=== PATIENT | male | born 1950 | race Caucasian/White ===

== ENCOUNTER → 2019-08-29 | Outpatient (CLI) | payer MEDICARE, BC | LOC: LB.CLINIC 09:36 | PROVIDERS: ATTEND Nurse Practitioner Family | DX: I27.20 Pulmonary hypertension, unspecified (principal) | CPT/HCPCS: 36415; 80048 ==

== ENCOUNTER 2019-10-04 02:20 | Emergency (ER) | payer MEDICARE, BC ==
[2019-10-04] MEDS ORDERED: Sodium Chloride 0.9% 1,000 ML IV SCH (03:00)
--- NOTE | 2019-10-04 05:29 | ER ---
HISTORY OF PRESENT ILLNESS: A 69-year-old male who comes in by private car with complaints of extreme weakness. He has had rectal bleeding he tells me violently at times for about a week. The patient tells me that he is achy all over and it is even hard to get a good breath. The patient states he does have some chest pain on the lower left side that has been on and off for weeks. He tells me that he did not take his Coumadin level yesterday, but was supposed to start taking it again today. PAST MEDICAL HISTORY: Includes PE, severe obesity, coronary artery disease, hypotension. OBJECTIVE: GENERAL APPEARANCE: The patient is awake, he is pale, he is tired. VITAL SIGNS: Initially revealed a blood pressure of 69/49, pulse 136, he is afebrile, O2 sats were 85%, but they did respond well to 3 L of O2, bringing up his saturation level to 100%. We then turned it down to 2 L. HEENT: Oral mucous membranes are slightly dry. Tonsils are not enlarged or injected. Pharynx not inflamed. NECK: Supple. LUNGS: Clear with reduced air exchange throughout the lung zaragoza. CARDIAC: Heart sounds distinct without murmurs. ABDOMEN: Soft, protuberant, mild vague tenderness diffusely with palpation. Bowel sounds are present. SKIN: Warm and dry. LABORATORY DATA: CBC shows a white count of 11.8, hemoglobin 5.1, hematocrit 18.8. INR is 3.8. Electrolyte panel is normal. Kidney function is normal with creatinine 1.26. Blood sugar is 235. Lactic acid 8.36. DIAGNOSES: 1. Severe anemia due to gastrointestinal bleed. 2. Lactic acidosis. 3. Hypotension. INITIAL TREATMENT PLAN: A L of normal saline was bolused in. This did bring his blood pressure up, the most recent reading was 103/36. I did consult with [facility] in [place], talking to Dr. Abraham, who accepted the patient. Arrangements are being made for the patient to be transferred to [place] as soon as possible, and we will start a blood transfusion here as well. CRS/MODL /[id number]
--- NOTE | 2019-10-04 06:44 | ER ---
ADDENDUM: The patient is being currently transferred to [facility] in [place] by ground ambulance, ACLS. He is leaving our facility now at 6:30 a.m. The patient's blood pressure has remained low. He was a very difficult IV start. We finally managed to get a second IV line in, so IV fluids can be given as well as the blood transfusion. The patient is in no significant respiratory distress, just mild shortness of breath, and I feel this is due to the severe anemia. CRS/MODL /[id number]
--- NOTE | 2019-10-05 11:33 | CR ---
Date of Service: 10/04/19 Clinical Data: rectal bleeding UNENHANCED ABDOMEN AND PELVIC CT: Multislice acquisition through the abdomen and pelvis without IV or oral contrast was performed. No priors. There are mild atelectatic changes in both lung bases. The lung bases otherwise clear. There is a 3.0 cm densely calcified lesion in the right paraspinal region. This is probably a prominent disk margin spur. It could represent a calcified lymph node from prior granulomatous disease. it appears to be benign. There is diffuse fatty infiltration of the liver. No focal hepatic lesions. The gallbladder is contacted. No calcified gallstones. There are multiple calcifications within the spleen consistent with prior granulomatous disease. The spleen otherwise appears normal. The pancreas appears normal. The right and left adrenals appear normal. There is mild atrophy of both kidneys. No nephrocalcinosis or nephrolithiasis. No hydronephrosis or hydroureter. There is a small amount of fluid within the bladder. It appears grossly normal. No evidence of appendicitis. There is mild diverticulosis of the descending and sigmoid colon. No evidence of diverticulitis. No free air. No free fluid. No dilated loops of bowel. No adenopathy. No aortic aneurysm. There is a periumbilical ventral hernia containing a loop of small bowel. No evidence of obstruction associated with it. There is degenerative disk disease throughout the lower thoracic and lumbar spine. IMPRESSION: No acute abnormalities. Other findings as discussed above. [id number] [facility]
== END 2019-10-04 06:55 ==
LOC: LB.ED 02:20
DX: K92.1 Melena (principal); D50.0 Iron deficiency anemia secondary to blood loss (chronic); E87.2 Acidosis; I95.9 Hypotension, unspecified; Z86.711 Personal history of pulmonary embolism; E66.9 Obesity, unspecified; I25.10 Atherosclerotic heart disease of native coronary artery without angina pectoris
CPT/HCPCS: 36415; 36430; 74176; 80053; 82962; 83605; 84484; 85025; 85610; 86850; 86900; 86901; 86920; 86922; 93005; 99285; J3430; J7030; P9016

== ENCOUNTER 2020-02-06 15:20 | Emergency (ER) | payer MEDICARE, BC ==
[2020-02-06] MEDS: Nystatin Topical Powder 15 GM Bottle ONE (15:45)
[2020-02-06] MEDS: Menthol/Zinc Oxide Ointment 113 GM Tube TOP PRN (16:00)
--- NOTE | 2020-02-06 16:03 | EDM.PDOC ---
ED HPI GENERAL MEDICAL PROBLEM - General Stated Complaint: BLEEDING IN INNER THIGH AREA Time Seen by Provider: 02/06/20 15:20 - History of Present Illness INITIAL COMMENTS - FREE TEXT/NARRATIVE: Jeremy presents to the emergency room for evaluation of scrotal issues. He notes that a couple weeks ago, he noticed a slight area of irritation on the anterior aspect of his scrotum near the midline. He believes that it was pinched somehow. Since then, the irritation has become a little more sensitive and itchy. He did notice a slight amount of blood coming from one edge. He is here primarily to get some salve to put on it to allow it to heal up. He really has no other issues for today. - Related Data Allergies Allergy/AdvReac Type Severity Reaction Status Date / Time No Known Allergies Allergy Verified 10/04/19 03:25 Home Meds: Home Meds Furosemide 1 tab PO BID 10/04/19 [History] Metoprolol Succinate [Toprol XL] 25 mg PO DAILY 10/04/19 [History] Multivits w-Min/Ferrous Gluc [Cerovite Liquid] 9 mg PO DAILY 10/04/19 [History] Warfarin Sodium [Jantoven] 1 tab PO DAILY 10/04/19 [History] lisinopriL [Lisinopril] 1 tab PO DAILY 10/04/19 [History] Past Medical History HEENT History: Reports: Impaired Vision Cardiovascular History: Reports: Hypertension, Pulmonary Hypertension Respiratory History: Reports: SOB Other Respiratory History: Pt has continuous oxygen at 2L/min. Endocrine/Metabolic History: Reports: Obesity/BMI 30+ Social & Family History - Caffeine Use Caffeine Use: Reports: Coffee ED ROS GENERAL - Review of Systems Review Of Systems: Comprehensive ROS is negative, except as noted in HPI. ED EXAM, GENERAL - Physical Exam Exam: See Below Exam Limited By: No Limitations General Appearance: Alert, WD/WN, No Apparent Distress Ears: Normal External Exam Throat/Mouth: Normal Lips, Normal Voice, No Airway Compromise Head: Atraumatic, Normocephalic Neck: Normal Inspection, Supple, Full Range of Motion Respiratory/Chest: No Respiratory Distress GI/Abdominal: Soft, Non-Tender (Male) Exam: Rash (He does have a slight rash that looks like may be related to some slight pressure and some irritation and induration along an abrasion without any active bleeding or underlying tenderness and no real sign of cellulitis and certainly no pointing abscess) Neurological: Alert, Oriented Psychiatric: Normal Affect, Normal Mood Course - Orders/Labs/Meds Orders: Active Orders 24 hr Category Date Time Status Menthol/Zinc Oxide [Calmoseptine] Med 02/06/20 20:00 Ordered 113 gm TOP BID Nystatin [Nystop] Med 02/06/20 20:00 Active 1 gm TOP BID Medication Orders Nystatin (Nystop) 1 gm TOP BID PEPITO Meds: Medications Generic Name Dose Route Start Last Admin Trade Name Freq PRN Reason Stop Dose Admin Nystatin 1 gm 02/06/20 20:00 Nystop TOP BID PEPITO Discontinued Medications Generic Name Dose Route Start Last Admin Trade Name Freq PRN Reason Stop Dose Admin Nystatin Confirm 02/06/20 15:48 Nystop Administered 02/06/20 15:49 Dose 15 gm .ROUTE .STK-MED ONE Departure - Departure Time of Disposition: 13:00 Disposition: Home, Self-Care 01 Clinical Impression: Scrotal rash - Discharge Information Instructions: Rash, Adult Referrals: PCP,None [Primary Care Provider] - Additional Instructions: Thanks for your time. Please follow the rash through to resolution. Please have your doctor check it out at your next visit. Take care, Dillon Arias MD - My Orders Last 24 Hours: My Active Orders 02/06/20 20:00 Menthol/Zinc Oxide [Calmoseptine] 113 gm TOP BID Nystatin [Nystop] 1 gm TOP BID - Assessment/Plan Last 24 Hours: My Active Orders 02/06/20 20:00 Menthol/Zinc Oxide [Calmoseptine] 113 gm TOP BID Nystatin [Nystop] 1 gm TOP BID
[2020-02-06] MEDS ORDERED: Nystatin Topical Powder 15 GM Bottle TOP SCH (20:00)
[2020-02-06] MEDS ORDERED: Menthol/Zinc Oxide Ointment 113 GM Tube TOP SCH (20:00)
== END 2020-02-06 16:05 | disposition home or self-care (01) ==
LOC: LB.ED 15:20
DX: R21 Rash and other nonspecific skin eruption (principal); I27.20 Pulmonary hypertension, unspecified; E66.9 Obesity, unspecified; Z68.1 Body mass index [BMI] 19.9 or less, adult; Z79.899 Other long term (current) drug therapy; Z79.01 Long term (current) use of anticoagulants
CPT/HCPCS: 99282; 99283; A9270-GY

== ENCOUNTER 2020-05-08 14:55 | Observation (INO) | payer MEDICARE, BC ==
[2020-05-08] MEDS ORDERED: Sodium Chloride 0.9% 1,000 ML IV ONE (16:05)
[2020-05-08] MEDS ORDERED: Albuterol/Ipratropium 3.0-0.5 MG/3 ML Neb Soln NEB PRN (17:12)
[2020-05-08] MEDS ORDERED: WARFARIN SODIUM PO SCH ×2 (17:15→18:00)
[2020-05-08] MEDS ORDERED: methylPREDNISolone Sodium Succinate 40 MG/1 ML SDV ONE (18:19)
--- NOTE | 2020-05-08 18:19 | ADMIT ---
This 70-year-old male who is being admitted for observation regarding respiratory acidosis which is causing weakness and some confusion. The patient was admitted through the emergency room where his state of confusion definitely improved while being on oxygen 5 L per nasal cannula. The patient was initially unable to really move or even answer questions effectively. Within about 45 minutes on oxygen, his symptoms definitely improved. Lab results revealed CBC is unremarkable. ABG showed a pH of 7.22, pCO2 of 99.9, HCO3 of 40.5, O2 sats at that time 86% on 5 L confirming his diagnosis of respiratory acidosis. The e- hospitalist service will be involved with handling this patient's care. We started him on normal saline at 200 mL an hour. The patient will be given a DuoNeb treatment as soon as he settles into his hospital room and we will resume his other current medications. PHYSICAL EXAMINATION: VITAL SIGNS: The patient's vital signs otherwise were okay. Blood pressure 115/72, pulse 96, temp 96, respirations 20. GENERAL: The patient is more awake and alert and is able to answer questions appropriately while he was being transferred over from the emergency room to the hospital. CRS/MODL /[id number]
[2020-05-08] MEDS ORDERED: methylPREDNISolone Sodium Succinate 40 MG/1 ML SDV IVPUSH ONE (18:25)
[2020-05-08] MEDS ORDERED: methylPREDNISolone Sodium Succinate 40 MG/1 ML SDV IV SCH (19:00)
[2020-05-08] MEDS ORDERED: Albuterol/Ipratropium 3.0-0.5 MG/3 ML Neb Soln NEB SCH (19:00)
[2020-05-08] MEDS ORDERED: Furosemide 40 MG/4 ML VIAL IVPUSH ONE (19:52)
--- NOTE | 2020-05-08 19:59 | PCM.PN ---
- General Info Date of Service: 05/08/20 - Patient Data Vitals - Most Recent: Last Vital Signs Temp 97.3 F 05/08/20 17:10 Pulse 82 05/08/20 17:35 Resp 28 H 05/08/20 17:10 BP 141/84 H 05/08/20 17:10 Pulse Ox 90 L 05/08/20 17:35 Weight - Most Recent: 415 lb I&O - Last 24 Hours: Intake & Output 05/08/20 05/08/20 05/08/20 06:59 14:59 22:59 Intake Total 880 Balance 880 Lab Results Last 24 Hours: Laboratory Results - last 24 hr 05/08/20 05/08/20 05/08/20 Range/Units 15:00 15:06 15:07 WBC (4.0-11.0) K/uL RBC (4.50-6.50) M/uL Hgb (13.0-18.0) g/dL Hct (40.0-54.0) % MCV (76-96) fL MCH (27.0-32.0) pg MCHC (31.0-35.0) g/dL RDW (11.0-16.0) % Plt Count (150-400) K/uL MPV (6.0-10.0) fL Neut % (Auto) (45.0-70.0) % Lymph % (Auto) (20.0-40.0) % [place] % (Auto) (3.0-10.0) % Eos % (Auto) (1.0-5.0) % Baso % (Auto) (0.0-0.5) % Neut # (Auto) (2.00-7.50) K/uL Lymph # (Auto) (1.50-4.00) K/uL [place] # (Auto) (0.20-0.80) K/uL Eos # (Auto) (0.04-0.40) K/uL Baso # (Auto) (0.02-0.10) K/uL PT (9.0-11.5) sec INR (1.0-3.5) ABG pH (7.35-7.45) ABG pCO2 (35-45) mmHg ABG pO2 (80-105) mmHg ABG HCO3 (22-26) mmol/L ABG O2 Saturation (95-98) % ABG Base Excess (-2-2) O2 Delivery Device POC Sodium (136-145) mmol/L Sodium Cancelled POC Potassium (3.5-5.1) mmol/L Potassium Cancelled POC Chloride (98-109) mmol/L Chloride Cancelled Carbon Dioxide Cancelled Anion Gap Cancelled POC BUN (8-26) mg/dL BUN Cancelled Creatinine Cancelled Est Cr Clr Drug Dosing Cancelled Estimated GFR (MDRD) Cancelled BUN/Creatinine Ratio Cancelled Glucose Cancelled POC Glucose (74-100) mg/dL Lactic Acid (0.4-2.0) mmol/L Calcium Cancelled Total Bilirubin Cancelled AST Cancelled ALT Cancelled Alkaline Phosphatase Cancelled Troponin I 0.020 (0.000-0.060) ng/mL B-Natriuretic Peptide 3187 H D (0-125) pg/mL Total Protein Cancelled Albumin Cancelled Globulin Cancelled Albumin/Globulin Ratio Cancelled COVID-19 (DAI) Negative 05/08/20 05/08/20 05/08/20 Range/Units 15:07 15:10 15:40 WBC 8.6 D (4.0-11.0) K/uL RBC 5.73 (4.50-6.50) M/uL Hgb 15.2 D (13.0-18.0) g/dL Hct 50.8 D (40.0-54.0) % MCV 89 (76-96) fL MCH 26.5 L (27.0-32.0) pg MCHC 29.9 L (31.0-35.0) g/dL RDW 17.5 H (11.0-16.0) % Plt Count 242 D (150-400) K/uL MPV 10.3 H (6.0-10.0) fL Neut % (Auto) 77.4 H (45.0-70.0) % Lymph % (Auto) 10.5 L (20.0-40.0) % [place] % (Auto) 9.8 (3.0-10.0) % Eos % (Auto) 2.1 (1.0-5.0) % Baso % (Auto) 0.2 (0.0-0.5) % Neut # (Auto) 6.66 (2.00-7.50) K/uL Lymph # (Auto) 0.90 L (1.50-4.00) K/uL [place] # (Auto) 0.84 H (0.20-0.80) K/uL Eos # (Auto) 0.18 (0.04-0.40) K/uL Baso # (Auto) 0.02 (0.02-0.10) K/uL PT 15.7 H D (9.0-11.5) sec INR 1.5 D (1.0-3.5) ABG pH (7.35-7.45) ABG pCO2 (35-45) mmHg ABG pO2 (80-105) mmHg ABG HCO3 (22-26) mmol/L ABG O2 Saturation (95-98) % ABG Base Excess (-2-2) O2 Delivery Device POC Sodium (136-145) mmol/L Sodium POC Potassium (3.5-5.1) mmol/L Potassium POC Chloride (98-109) mmol/L Chloride Carbon Dioxide Anion Gap POC BUN (8-26) mg/dL BUN Creatinine Est Cr Clr Drug Dosing Estimated GFR (MDRD) BUN/Creatinine Ratio Glucose POC Glucose (74-100) mg/dL Lactic Acid 0.6 (0.4-2.0) mmol/L Calcium Total Bilirubin AST ALT Alkaline Phosphatase Troponin I (0.000-0.060) ng/mL B-Natriuretic Peptide (0-125) pg/mL Total Protein Albumin Globulin Albumin/Globulin Ratio COVID-19 (DAI) 05/08/20 05/08/20 Range/Units 15:51 16:21 WBC (4.0-11.0) K/uL RBC (4.50-6.50) M/uL Hgb (13.0-18.0) g/dL Hct (40.0-54.0) % MCV (76-96) fL MCH (27.0-32.0) pg MCHC (31.0-35.0) g/dL RDW (11.0-16.0) % Plt Count (150-400) K/uL MPV (6.0-10.0) fL Neut % (Auto) (45.0-70.0) % Lymph % (Auto) (20.0-40.0) % [place] % (Auto) (3.0-10.0) % Eos % (Auto) (1.0-5.0) % Baso % (Auto) (0.0-0.5) % Neut # (Auto) (2.00-7.50) K/uL Lymph # (Auto) (1.50-4.00) K/uL [place] # (Auto) (0.20-0.80) K/uL Eos # (Auto) (0.04-0.40) K/uL Baso # (Auto) (0.02-0.10) K/uL PT (9.0-11.5) sec INR (1.0-3.5) ABG pH 7.22 L (7.35-7.45) ABG pCO2 99.9 H* (35-45) mmHg ABG pO2 67 L (80-105) mmHg ABG HCO3 40.5 H (22-26) mmol/L ABG O2 Saturation 86 L (95-98) % ABG Base Excess 13 H (-2-2) O2 Delivery Device Hi flow nasal cannu POC Sodium 141 (136-145) mmol/L Sodium POC Potassium 4.3 (3.5-5.1) mmol/L Potassium POC Chloride 95 L (98-109) mmol/L Chloride Carbon Dioxide Anion Gap POC BUN 37 H (8-26) mg/dL BUN Creatinine Est Cr Clr Drug Dosing Estimated GFR (MDRD) BUN/Creatinine Ratio Glucose POC Glucose 122 H (74-100) mg/dL Lactic Acid (0.4-2.0) mmol/L Calcium Total Bilirubin AST ALT Alkaline Phosphatase Troponin I (0.000-0.060) ng/mL B-Natriuretic Peptide (0-125) pg/mL Total Protein Albumin Globulin Albumin/Globulin Ratio COVID-19 (DAI) Med Orders - Current: Current Medications Acetaminophen/Codeine Phosphate (Tylenol With Codeine No.3 300mg/30mg) 1 tab PO BID PEPITO Albuterol/Ipratropium (Duoneb 3.0-0.5 Mg/3 Ml) 3 ml NEB Q4H PEPITO Cholecalciferol (Vitamin D3) 100 mcg PO DAILY PEPITO Furosemide (Lasix) 40 mg PO BID@0800,1400 PEPITO Lisinopril (Prinivil) 5 mg PO DAILY PEPITO Methylprednisolone Sodium Succinate (Solu-Medrol) 60 mg IV DAILY PEPITO Last Admin: 05/08/20 18:25 Dose: 60 mg Documented by: Metoprolol Succinate (Toprol Xl) 25 mg PO DAILY [facility] Non-Formulary Medication (Multivits W-Min/Ferrous Gluc [Cerovite Liquid]) 9 mg PO DAILY PEPITO Non-Formulary Medication (Warfarin Sodium [Jantoven]) 1 tab PO ASDIRECTED PEPITO Non-Formulary Medication (Warfarin Sodium [Jantoven]) 1 tab PO DAILY PEPITO Tamsulosin HCl (Flomax) 0.4 mg PO DAILY [facility] Discontinued Medications Albuterol/Ipratropium (Duoneb 3.0-0.5 Mg/3 Ml) 3 ml NEB Q6H PRN PRN Reason: Shortness of Breath Last Admin: 05/08/20 18:11 Dose: 3 ml Documented by: Furosemide (Lasix) 40 mg PO BID [facility] Sodium Chloride (Normal Saline) 1,000 mls @ 200 mls/hr IV .BOLUS ONE Stop: 05/08/20 21:04 Last Admin: 05/08/20 16:30 Dose: 200 mls/hr Documented by: Methylprednisolone Sodium Succinate (Solu-Medrol) Confirm Administered Dose 80 mg .ROUTE .STK-MED ONE Stop: 05/08/20 18:20 Last Admin: 05/08/20 18:53 Dose: Not Given Documented by: Methylprednisolone Sodium Succinate (Solu-Medrol) 60 mg IVPUSH ONETIME ONE Stop: 05/08/20 18:26 Non-Formulary Medication (Warfarin Sodium [Jantoven]) 1 tab PO ASDIRECTED PEPITO Non-Formulary Medication (Warfarin Sodium [Jantoven]) 1 tab PO DAILY [facility] Sepsis Event Note - Evaluation Sepsis Screening Result: No Definite Risk - Focused Exam Vital Signs: Vital Signs Temp Pulse Pulse Resp BP BP Pulse Ox 05/08/20 17:35 82 90 L 05/08/20 17:10 97.3 F 86 28 H 141/84 H 88 L 05/08/20 14:55 96 F L 96 20 115/72 90 L Date Exam was Performed: 05/08/20 Time Exam was Performed: 20:00 - Problem List Review Problem List Initiated/Reviewed/Updated: No - My Orders Last 24 Hours: My Active Orders 05/08/20 19:00 Albuterol/Ipratropium [DuoNeb 3.0-0.5 MG/3 ML] 3 ml NEB Q4H 05/08/20 19:52 Furosemide [Lasix] 40 mg IVPUSH NOW ONE - Plan Plan:: [facility] Hospitalist CONSULTATION NOTE: eHospitalist was contacted by Rashawn MARIEE with request of consultation for hypercapnic respiratory failure: HPI: 70 yo M with COPD, chronic resp failure on O2. He was brought to ER today by EMS after being summoned by his home health hearing aid assistant who found him altered. EMS obtained O2 sats of 69% and suspected oxygen was not working. On initial arrival to ER O2 sats had improved to 90% on 5L by [place]. He was initally ence phalopathic however improved to the point of answering questions and being able to use the restroom with minimal assistance. He was not found to be wheezy but had decreased air movement throughout. Blood cell count was normal 8.6, hemoglobin 15.2, INR 1.5, ABG most notable for a respiratory acidosis with pH of 7.22, PCO2 of 99.9, PO2 of 67, bicarb 40.5. Other chemistries notable for a sodium 141 potassium 4.3 BUN 37 glucose 122. A BNP was 3187. COVID testing was negative. INR of 1.5 On camera he admits to progressive dyspnea over the past 2-3 days with increase cough, no sputum production. No pleuritic pain or chest pain. Unsure if any increase in chronic LE swelling. No other bleeding bruising or rash however does have some areas of erythema in skin folds. Pertinent Medical History: COPD Chronic resp failure morbid obesity h/o PE CAD h/o severe anemia sep 2019 Pertinent Social History: lives at home independently, does have a home hearing aid assistant Exam: well developed male, wearing bipap VS: BP 120/72, P 85, RR 22, O2 96% on bipap Lungs: decreased throughout, bibasilar crackles present. Tidal volume of 500 cc on bipap CV: RRR without MRG Ext: pitting edema of the feet, chronic venous stasis changes Skin: erythema with satellite lesion under breast folds Assessment and Plan: Patient is a male with reported history of COPD. History of PE. Presented with hypoxia and confusion found to have hypercapnic respiratory failure with a pH of 7.2 PCO2 of 99. 1. Hypoxic and hypercapnic respiratory failure. Suspect COPD exacerbation with concomitant volume overload/CHF. Initiated BiPAP therapy 09/14 with repeat ABG in 1 hour. He furthermore is initiated on duo nebs changed to every 4 hours. Also started on Solu-Medrol 60 mg daily. Stopped IV fluid. Ordered lasix 40mg now as well. Requires close clinical monitoring and if fails to respond will need titration of bipap, additional lasix or consideration for alternate diagnosis such as PE. At this time clinical scenerio most consistent with COPD/CHF 2. Morbid obesity 3. HTN - continue lisinopril, consider additional lasix dosing 4. H/o PE - continue warfarin Thank you for including [facility] Hospitalist in the patients care. This service is available for further assistance as requested by your care team by calling [phone].
[2020-05-08] MEDS ORDERED: Furosemide 40 MG Tab PO SCH (20:00)
[2020-05-08] MEDS ORDERED: Acetaminophen/Codeine 300-30 MG Tab PO SCH (20:00)
[2020-05-08] MEDS ORDERED: Furosemide 40 MG/4 ML VIAL ONE (20:14)
[2020-05-08] MEDS ORDERED: Morphine 2 MG/ML SYRINGE IVPUSH ONE (21:58)
[2020-05-08] MEDS ORDERED: Morphine 2 MG/ML SYRINGE ONE (22:01)
[2020-05-08 22:31] VITALS: BP 137/77; PULSE 84
[2020-05-09] MEDS ORDERED: Tamsulosin 0.4 MG Cap.ER PO SCH (08:00)
[2020-05-09] MEDS ORDERED: Cholecalciferol (Vitamin D3) 25 MCG Tab PO SCH (08:00)
[2020-05-09] MEDS ORDERED: MULTIVITS W MIN PO SCH (08:00)
[2020-05-09] MEDS ORDERED: Furosemide 40 MG Tab PO SCH (08:00)
[2020-05-09] MEDS ORDERED: WARFARIN SODIUM PO SCH ×2 (08:00)
[2020-05-09] MEDS ORDERED: Nystatin Crm 30 GM Tube TOP SCH (08:00)
[2020-05-09] MEDS ORDERED: FERROUS GLUC PO SCH (08:00)
[2020-05-09] MEDS ORDERED: Metoprolol Succinate 25 MG Tab.ER PO SCH (08:00)
[2020-05-09] MEDS ORDERED: Lisinopril 5 MG Tab PO SCH (08:00)
--- NOTE | 2020-05-09 11:13 | ER ---
HISTORY OF PRESENT ILLNESS: A 70-year-old male who comes in by ambulance with confusion and stating he does not feel well. The patient has a healthcare worker who goes to his home once a week and she noticed that he was weak and confused today and I understand she was the one who called the ambulance service. EMS report states that the patient's O2 sats were extremely low when they arrived in the mid 60s. They put oxygen on and it came up to around 90 rather quickly. The patient has had some confusion and generalized complaints of not feeling well. Nothing specific. Upon entering the emergency room, the patient states he does not feel well, but he cannot give me any details. He is lying there without any respiratory distress. His eyes are closed most of the time. He states he feels achy all over. He denies any trouble breathing. He has not been coughing. He just tells me he does not feel good. OBJECTIVE: GENERAL APPEARANCE: The patient is sleepy. He seems somewhat confused. He is unable to answer questions accurately or effectively. No respiratory distress. VITAL SIGNS: Reveal his temp is 96.0, blood pressure 115/72, respirations 20, O2 sats are currently at 90% on 5 L per nasal cannula. Pulse is 90. HEENT: Oral mucous membranes are slightly dry. Tonsils are not enlarged or injected. Pharynx not inflamed. LUNGS: Reveal minimal end-expiratory rhonchi. CARDIAC: Heart sounds distinct. S1, S2 present. No murmurs noted. ABDOMEN: Protuberant, nontender to palpation. Bowel sounds are present. SKIN: Warm and dry. LAB AND X-RAY: Chest x-ray is obtained showing what looks like some mild pulmonary congestion, otherwise unremarkable. Labs include a CBC showing a normal white count, hemoglobin 15.2. PT 15.7, INR 1.5. ABGs are significantly abnormal. PH of 7.22, pCO2 of 99.9, PO2 of 67, HCO3 of 40.5. This is on 5 L of oxygen. Comprehensive metabolic panel is only partially finished due to equipment downtime with lab. His electrolytes look okay. Chloride is 95, BUN is 37, glucose 122. COVID test is negative. We still have a lactic acid and BNP pending as well. DIAGNOSIS: Respiratory acidosis causing weakness and confusion. TREATMENT PLAN: The patient is improving over the course of spending about 45 minutes here on oxygen. He is now more awake and not as confused. We will admit the patient for observation. He has not been taking his medications probably as instructed and he does have neb treatments at home, DuoNeb treatments, which he states he has not taken today. We will give him a neb treatment as soon as possible, and admit him for observation. CRS/MODL /[id number]
--- NOTE | 2020-05-09 14:33 | DISCH ---
This 70-year-old male was admitted through the emergency room with severe respiratory acidosis and underlying CHF. I did consult with the e-hospitalist program, , who suggested we try some Solu-Medrol which we did 60 mg IV. He was given 40 mg of Lasix IV. ABGs initially showed a pCO2 of 99.9 and pH is 7.2. The patient was started on BiPAP and his second ABGs 1 hour later revealed the pCO2 went up to 110 and the pH dropped down under 7.2 into critical area. We then increased the BiPAP levels to 15/8 and within approximately 1 more hour, ABGs were once again checked with an improved reading of pCO2 of 99.4 and pH went up slightly but out of critical territory. His BNP also came back at 3100. In consulting again with , it was determined the patient would benefit from a higher level of care, critical care namely with Pulmonology available and arrangements were made to transfer the patient. He was accepted at [facility] in [place] per Dr. Gaffney and arrangements are being made for the patient to be transferred there by [facility]. While still at our facility, he was complaining of pain. We did give him 2 mg of morphine IV. CRS/MODL /[id number]
--- NOTE | 2020-05-09 20:52 | CR ---
DATE OF SERVICE: 05/08/2020 CLINICAL DATA: Not feeling well. AP CHEST: Comparison is made to a prior exam dated 03/10/2011. The patient has taken a poor inspiration. The heart is enlarged. The proximal pulmonary arteries are markedly enlarged suggesting pulmonary hypertension. There is also pulmonary vascular congestion on today's exam suggesting congestive failure or fluid overload. There are mild interstitial changes throughout both lungs. No pneumothorax. No pleural effusions. [id number] MTDD
== END 2020-05-08 23:25 ==
LOC: LB.ED 14:55 → LB.MS 17:01 → INTOOBSV 17:01 → UNDODISIN 23:25
PROVIDERS: ADMIT Physician Assistant; ATTEND Physician Assistant
DX: J96.92 Respiratory failure, unspecified with hypercapnia (principal); E87.2 Acidosis; G93.49 Other encephalopathy; Z68.43 Body mass index [BMI] 50.0-59.9, adult; I50.9 Heart failure, unspecified; J96.91 Respiratory failure, unspecified with hypoxia; Z20.828 Contact with and (suspected) exposure to other viral communicable diseases; J44.9 Chronic obstructive pulmonary disease, unspecified; E66.01 Morbid (severe) obesity due to excess calories; I25.10 Atherosclerotic heart disease of native coronary artery without angina pectoris; D64.9 Anemia, unspecified; Z86.711 Personal history of pulmonary embolism; Z79.01 Long term (current) use of anticoagulants
CPT/HCPCS: 36415; 36600; 71045; 80047; 80048; 82803; 83605; 83880; 84484; 85025; 85610; 93005; 94660; 96360; 99285-25; J1940; J2270; J2920; J7030; J7620-GY; U0002

== ENCOUNTER 2020-05-30 15:12 | Inpatient (IN) | payer MEDICARE, BC, OTHER ==
[2020-05-30] MEDS ORDERED: Albuterol/Ipratropium 3.0-0.5 MG/3 ML Neb Soln ONE (15:33)
--- NOTE | 2020-05-30 16:12 | CR ---
AP chest: The comparison is made to a prior exam dated 08 May 2020. The patient has taken a poor inspiration. The heart size is at the upper limits of normal. The proximal pulmonary arteries remain prominent suggesting pulmonary hypertension. The pulmonary vasculature is, however, less prominent than on the prior study. There is a linear density in the left lung base laterally consistent with linear atelectasis or fibrosis. The lungs are otherwise clear. No pneumothorax. No pleural effusions. MTDD
[2020-05-30] MEDS ORDERED: Furosemide 40 MG/4 ML VIAL IVPUSH STA (16:52)
[2020-05-30] MEDS ORDERED: Furosemide 40 MG/4 ML VIAL ONE (18:20)
[2020-05-30] MEDS: Warfarin 5 MG Tab PO SCH (21:00)
[2020-05-30] MEDS: Melatonin 3 MG Tab PO PRN (21:00)
[2020-05-30] MEDS: Nystatin Topical Powder 15 GM Bottle TOP SCH (21:00)
[2020-05-30] MEDS: Acetaminophen 500 MG Tab PO PRN (21:00)
--- NOTE | 2020-05-30 21:39 | EDM.PDOC ---
ED HPI GENERAL MEDICAL PROBLEM - General Chief Complaint: General Stated Complaint: LOW OXYGEN Time Seen by Provider: 05/30/20 15:12 Source of Information: Reports: Patient, EMS History Limitations: Reports: No Limitations - History of Present Illness INITIAL COMMENTS - FREE TEXT/NARRATIVE: Patient recently home from [facility] after CHF exerbation. Is on home O2 at 4 liters and bipap at night. Over the past 2 days, patient states he has felt increased SOB and has kept his cpap on continously. He has not had any nebulizer treatments since last week and states they DC'd his lasix. Sats on 4 l at home were 82-87 per patient's new pulse ox. He has been ambulatory at home with his walker, but becomes SOB with exertion. Upon EMS arrival, patient was able to walk to ambulance and o2 sats on cpap were 90-94. Denies fever, CP, leg pain, urinary symptoms or any abdominal pain. Severity: Mild Improves with: Reports: Rest Worsens with: Reports: Movement Context: Reports: Activity Associated Symptoms: Reports: No Other Symptoms Treatments [employer]OR: Reports: Oxygen - Related Data Allergies Allergy/AdvReac Type Severity Reaction Status Date / Time No Known Allergies Allergy Verified 05/08/20 15:32 Home Meds: Home Meds Multivits w-Min/Ferrous Gluc [Cerovite Liquid] 9 mg PO DAILY 10/04/19 [History] Warfarin Sodium [Jantoven] 1 tab PO DAILY 10/04/19 [History] lisinopriL [Lisinopril] 1 tab PO DAILY 10/04/19 [History] Acetaminophen/Codeine [Tylenol with Codeine No.3 300MG/30MG] 1 tab PO BID 05/08/20 [History] Albuterol/Ipratropium [DuoNeb 3.0-0.5 MG/3 ML] 3 ml IH Q6H PRN 05/08/20 [History] Tamsulosin HCl [Flomax] 0.4 mg PO DAILY 05/08/20 [History] Warfarin Sodium [Jantoven] 1 tab PO ASDIRECTED 05/08/20 [History] Past Medical History HEENT History: Reports: Impaired Vision Cardiovascular History: Reports: Hypertension, Pulmonary Hypertension Respiratory History: Reports: SOB Other Respiratory History: Pt has continuous oxygen at 4L/min. Gastrointestinal History: Reports: Other (See Below) Other Gastrointestinal History: recent surgery for colon cancer Musculoskeletal History: Reports: Other (See Below) Other Musculoskeletal History: Walks with a walker, very obese, knee pain Endocrine/Metabolic History: Reports: Obesity/BMI 30+ Dermatologic History: Reports: Cellulitis, Eczema, Venous Stasis Dermatitis, Other (See Below) Other Dermatologic History: yeast in abdominal folds, excoriated scrotum - Past Surgical History Dermatological Surgical History: Reports: None Social & Family History - Family History Family Medical History: Noncontributory - Tobacco Use Smoking Status *Q: Former Smoker Used Tobacco, but Quit: Yes Month/Year Tobacco Last Used: 05/2000 Second Hand Smoke Exposure: No - Caffeine Use Caffeine Use: Reports: None - Recreational Drug Use Recreational Drug Use: No ED ROS GENERAL - Review of Systems Review Of Systems: See Below Constitutional: Reports: No Symptoms HEENT: Reports: No Symptoms Respiratory: Reports: Shortness of Breath, Wheezing, Cough Cardiovascular: Reports: Dyspnea on Exertion, Edema GI/Abdominal: Reports: No Symptoms : Reports: No Symptoms Musculoskeletal: Reports: No Symptoms Skin: Reports: No Symptoms Neurological: Reports: No Symptoms Psychiatric: Reports: No Symptoms Hematologic/Lymphatic: Reports: No Symptoms Immunologic: Reports: No Symptoms ED EXAM, GENERAL - Physical Exam Exam: See Below Exam Limited By: No Limitations General Appearance: Alert, Mild Distress Nose: Normal Inspection Throat/Mouth: Normal Inspection, Normal Voice, No Airway Compromise Head: Atraumatic Neck: Normal Inspection, Full Range of Motion Respiratory/Chest: Chest Non-Tender, Decreased Breath Sounds, Rales, Wheezing Cardiovascular: No JVD, No Murmur Peripheral Pulses: 3+: Carotid (L), Carotid (R), Radial (L), Radial (R), Posterior Tibial (L), Posterior Tibial (R), Dorsalis Pedis (L), Dorsalis Pedis (R) GI/Abdominal: Normal Bowel Sounds Back Exam: Normal Inspection. No: CVA Tenderness (R), CVA Tenderness (L) Extremities: Normal Inspection (patient states his legs are at baseline), Pedal Edema. No: Leg Pain Neurological: Alert, Oriented Psychiatric: Normal Affect, Normal Mood Skin Exam: Warm, Dry, Intact Lymphatic: No Adenopathy Course - Vital Signs Last Recorded V/S: Last Vital Signs Temp 98.2 F 05/30/20 17:31 Pulse 82 05/30/20 17:31 Resp 22 H 05/30/20 17:31 BP 133/67 05/30/20 17:31 Pulse Ox 93 L 05/30/20 17:32 - Orders/Labs/Meds Labs: Laboratory Tests 05/30/20 05/30/20 05/30/20 Range/Units 08:07 15:50 15:50 WBC 6.0 D (4.0-11.0) K/uL RBC 5.16 (4.50-6.50) M/uL Hgb 13.6 (13.0-18.0) g/dL Hct 45.0 (40.0-54.0) % MCV 87 (76-96) fL MCH 26.4 L (27.0-32.0) pg MCHC 30.2 L (31.0-35.0) g/dL RDW 17.0 H (11.0-16.0) % Plt Count 199 (150-400) K/uL MPV 9.9 (6.0-10.0) fL Neut % (Auto) 67.0 (45.0-70.0) % Lymph % (Auto) 14.8 L (20.0-40.0) % [place] % (Auto) 10.6 H (3.0-10.0) % Eos % (Auto) 7.3 H (1.0-5.0) % Baso % (Auto) 0.3 (0.0-0.5) % Neut # (Auto) 4.04 (2.00-7.50) K/uL Lymph # (Auto) 0.89 L (1.50-4.00) K/uL [place] # (Auto) 0.64 (0.20-0.80) K/uL Eos # (Auto) 0.44 H (0.04-0.40) K/uL Baso # (Auto) 0.02 (0.02-0.10) K/uL PT 21.0 H D (9.0-11.5) sec INR 2.1 D (1.0-3.5) ABG pH 7.40 (7.35-7.45) ABG pCO2 63.2 H* (35-45) mmHg ABG pO2 60 L (80-105) mmHg ABG HCO3 39.2 H (22-26) mmol/L ABG O2 Saturation 89 L (95-98) % ABG Base Excess 14 H (-2-2) [place] Test Positive O2 Delivery Device Nasal cannula Sodium (136-145) mmol/L Potassium (3.5-5.1) mmol/L Chloride (98-107) mmol/L Carbon Dioxide (21.0-32.0) mmol/L Anion Gap (5.0-15.0) mmol/L BUN (8-26) mg/dL Creatinine (0.70-1.30) mg/dL Est Cr Clr Drug Dosing mL/min Estimated GFR (MDRD) (>60) MLS/MIN BUN/Creatinine Ratio (6-25) Glucose (74-100) mg/dL Calcium (8.5-10.1) mg/dL Total Bilirubin (0.0-1.0) mg/dL AST (15-37) U/L ALT (12-78) U/L Alkaline Phosphatase (46-116) U/L B-Natriuretic Peptide (0-125) pg/mL Total Protein (6.4-8.2) g/dL Albumin (3.4-5.0) g/dL Globulin (2.2-4.2) g/dL Albumin/Globulin Ratio (0.8-2.0) 05/30/20 05/30/20 Range/Units 15:50 15:50 WBC (4.0-11.0) K/uL RBC (4.50-6.50) M/uL Hgb (13.0-18.0) g/dL Hct (40.0-54.0) % MCV (76-96) fL MCH (27.0-32.0) pg MCHC (31.0-35.0) g/dL RDW (11.0-16.0) % Plt Count (150-400) K/uL MPV (6.0-10.0) fL Neut % (Auto) (45.0-70.0) % Lymph % (Auto) (20.0-40.0) % [place] % (Auto) (3.0-10.0) % Eos % (Auto) (1.0-5.0) % Baso % (Auto) (0.0-0.5) % Neut # (Auto) (2.00-7.50) K/uL Lymph # (Auto) (1.50-4.00) K/uL [place] # (Auto) (0.20-0.80) K/uL Eos # (Auto) (0.04-0.40) K/uL Baso # (Auto) (0.02-0.10) K/uL PT (9.0-11.5) sec INR (1.0-3.5) ABG pH 7.38 (7.35-7.45) ABG pCO2 62.8 H* D (35-45) mmHg ABG pO2 58 L* D (80-105) mmHg ABG HCO3 37.2 H (22-26) mmol/L ABG O2 Saturation 88 L (95-98) % ABG Base Excess 12 H (-2-2) [place] Test Positive O2 Delivery Device Nasal cannula Sodium 145 (136-145) mmol/L Potassium 4.1 (3.5-5.1) mmol/L Chloride 105 (98-107) mmol/L Carbon Dioxide 37.5 H (21.0-32.0) mmol/L Anion Gap 6.6 (5.0-15.0) mmol/L BUN 15 D (8-26) mg/dL Creatinine 0.99 (0.70-1.30) mg/dL Est Cr Clr Drug Dosing 77.30 mL/min Estimated GFR (MDRD) > 60 (>60) MLS/MIN BUN/Creatinine Ratio 15.2 (6-25) Glucose 123 H D (74-100) mg/dL Calcium 9.1 (8.5-10.1) mg/dL Total Bilirubin 1.0 D (0.0-1.0) mg/dL AST 20 (15-37) U/L ALT 32 (12-78) U/L Alkaline Phosphatase 45 L (46-116) U/L B-Natriuretic Peptide 874 H D (0-125) pg/mL Total Protein 7.0 (6.4-8.2) g/dL Albumin 3.0 L (3.4-5.0) g/dL Globulin 4.0 (2.2-4.2) g/dL Albumin/Globulin Ratio 0.8 (0.8-2.0) Meds: Medications Discontinued Medications Generic Name Dose Route Start Last Admin Trade Name Freq PRN Reason Stop Dose Admin Albuterol/Ipratropium Confirm 05/30/20 15:33 Duoneb 3.0-0.5 Mg/3 Ml Administered 05/30/20 15:34 Dose 3 ml .ROUTE .STK-MED ONE Furosemide 40 mg 05/30/20 16:52 05/30/20 18:13 Lasix IVPUSH 05/30/20 16:53 40 mg NOW STA Administration Furosemide Confirm 05/30/20 18:20 Lasix Administered 05/30/20 18:21 Dose 40 mg .ROUTE .STK-MED ONE Departure - Departure Time of Disposition: 17:45 Disposition: Admitted As Inpatient 67 Condition: Good Clinical Impression: CHF, Congestive heart failure, Hypoxia - Discharge Information Sepsis Event Note (ED) - Evaluation Sepsis Screening Result: No Definite Risk - Focused Exam Vital Signs: Vital Signs Temp Pulse Resp BP Pulse Ox 05/30/20 15:36 98.2 F 95 22 H 133/78 94 L 05/30/20 15:12 98.2 F 91 24 H 132/71 94 L
[2020-05-30] MEDS ORDERED: Albuterol/Ipratropium 3.0-0.5 MG/3 ML Neb Soln NEB PRN (22:17)
[2020-05-31] MEDS: Acetaminophen 500 MG Tab PO PRN ×2 (05:41→21:32)
--- NOTE | 2020-05-31 08:53 | PCM.PN ---
- General Info Date of Service: 05/31/20 Subjective Update: This is a 70yo M here for acute respiratory failure with hypoxia. He was recently discharged from [facility] post CHF management. We are awaiting his records as he does not recall his active problems. He does use a BIPAP machine and was discharged on 4L but for some time had only used 2L and then required to use the BIPAP during the day prior to coming to the ER. He notes improvement today around 70% of baseline. He has a temporary BIPAP from [facility] but is not sure of the settings as he has one at home. He denies any concerns otherwise. Functional Status: Reports: Tolerating Diet, Ambulating - Review of Systems General: Reports: Weakness HEENT: Reports: No Symptoms Pulmonary: Reports: Shortness of Breath Cardiovascular: Reports: No Symptoms Gastrointestinal: Reports: No Symptoms Genitourinary: Reports: No Symptoms Musculoskeletal: Reports: No Symptoms Skin: Reports: No Symptoms Neurological: Reports: No Symptoms Psychiatric: Reports: No Symptoms - Patient Data Vitals - Most Recent: Last Vital Signs Temp 36.2 C 05/31/20 07:41 Pulse 70 05/31/20 07:41 Resp 20 05/31/20 07:41 BP 126/80 05/31/20 07:41 Pulse Ox 97 05/31/20 07:41 Weight - Most Recent: 175.087 kg I&O - Last 24 Hours: Intake & Output 05/30/20 05/31/20 05/31/20 22:59 06:59 14:59 Intake Total 360 Balance 360 Lab Results Last 24 Hours: Laboratory Results - last 24 hr 05/30/20 05/30/20 05/30/20 Range/Units 08:07 15:50 15:50 WBC 6.0 D (4.0-11.0) K/uL RBC 5.16 (4.50-6.50) M/uL Hgb 13.6 (13.0-18.0) g/dL Hct 45.0 (40.0-54.0) % MCV 87 (76-96) fL MCH 26.4 L (27.0-32.0) pg MCHC 30.2 L (31.0-35.0) g/dL RDW 17.0 H (11.0-16.0) % Plt Count 199 (150-400) K/uL MPV 9.9 (6.0-10.0) fL Neut % (Auto) 67.0 (45.0-70.0) % Lymph % (Auto) 14.8 L (20.0-40.0) % Moore % (Auto) 10.6 H (3.0-10.0) % Eos % (Auto) 7.3 H (1.0-5.0) % Baso % (Auto) 0.3 (0.0-0.5) % Neut # (Auto) 4.04 (2.00-7.50) K/uL Lymph # (Auto) 0.89 L (1.50-4.00) K/uL Moore # (Auto) 0.64 (0.20-0.80) K/uL Eos # (Auto) 0.44 H (0.04-0.40) K/uL Baso # (Auto) 0.02 (0.02-0.10) K/uL PT 21.0 H D (9.0-11.5) sec INR 2.1 D (1.0-3.5) ABG pH 7.40 (7.35-7.45) ABG pCO2 63.2 H* (35-45) mmHg ABG pO2 60 L (80-105) mmHg ABG HCO3 39.2 H (22-26) mmol/L ABG O2 Saturation 89 L (95-98) % ABG Base Excess 14 H (-2-2) [place] Test Positive O2 Delivery Device Nasal cannula Sodium (136-145) mmol/L Potassium (3.5-5.1) mmol/L Chloride (98-107) mmol/L Carbon Dioxide (21.0-32.0) mmol/L Anion Gap (5.0-15.0) mmol/L BUN (8-26) mg/dL Creatinine (0.70-1.30) mg/dL Est Cr Clr Drug Dosing mL/min Estimated GFR (MDRD) (>60) MLS/MIN BUN/Creatinine Ratio (6-25) Glucose (74-100) mg/dL Calcium (8.5-10.1) mg/dL Total Bilirubin (0.0-1.0) mg/dL AST (15-37) U/L ALT (12-78) U/L Alkaline Phosphatase (46-116) U/L B-Natriuretic Peptide (0-125) pg/mL Total Protein (6.4-8.2) g/dL Albumin (3.4-5.0) g/dL Globulin (2.2-4.2) g/dL Albumin/Globulin Ratio (0.8-2.0) 05/30/20 05/30/20 05/31/20 Range/Units 15:50 15:50 07:15 WBC (4.0-11.0) K/uL RBC (4.50-6.50) M/uL Hgb (13.0-18.0) g/dL Hct (40.0-54.0) % MCV (76-96) fL MCH (27.0-32.0) pg MCHC (31.0-35.0) g/dL RDW (11.0-16.0) % Plt Count (150-400) K/uL MPV (6.0-10.0) fL Neut % (Auto) (45.0-70.0) % Lymph % (Auto) (20.0-40.0) % Moore % (Auto) (3.0-10.0) % Eos % (Auto) (1.0-5.0) % Baso % (Auto) (0.0-0.5) % Neut # (Auto) (2.00-7.50) K/uL Lymph # (Auto) (1.50-4.00) K/uL Moore # (Auto) (0.20-0.80) K/uL Eos # (Auto) (0.04-0.40) K/uL Baso # (Auto) (0.02-0.10) K/uL PT (9.0-11.5) sec INR (1.0-3.5) ABG pH 7.38 7.33 L (7.35-7.45) ABG pCO2 62.8 H* D 75.3 H* (35-45) mmHg ABG pO2 58 L* D 61 L (80-105) mmHg ABG HCO3 37.2 H 39.4 H (22-26) mmol/L ABG O2 Saturation 88 L 88 L (95-98) % ABG Base Excess 12 H 13 H (-2-2) [place] Test Positive Positive O2 Delivery Device Nasal cannula Nasal cannula Sodium 145 (136-145) mmol/L Potassium 4.1 (3.5-5.1) mmol/L Chloride 105 (98-107) mmol/L Carbon Dioxide 37.5 H (21.0-32.0) mmol/L Anion Gap 6.6 (5.0-15.0) mmol/L BUN 15 D (8-26) mg/dL Creatinine 0.99 (0.70-1.30) mg/dL Est Cr Clr Drug Dosing 77.30 mL/min Estimated GFR (MDRD) > 60 (>60) MLS/MIN BUN/Creatinine Ratio 15.2 (6-25) Glucose 123 H D (74-100) mg/dL Calcium 9.1 (8.5-10.1) mg/dL Total Bilirubin 1.0 D (0.0-1.0) mg/dL AST 20 (15-37) U/L ALT 32 (12-78) U/L Alkaline Phosphatase 45 L (46-116) U/L B-Natriuretic Peptide 874 H D (0-125) pg/mL Total Protein 7.0 (6.4-8.2) g/dL Albumin 3.0 L (3.4-5.0) g/dL Globulin 4.0 (2.2-4.2) g/dL Albumin/Globulin Ratio 0.8 (0.8-2.0) Med Orders - Current: Current Medications Acetaminophen (Tylenol Extra Strength) 500 mg PO Q6H PRN PRN Reason: Pain Last Admin: 05/31/20 05:41 Dose: 500 mg Documented by: Albuterol/Ipratropium (Duoneb 3.0-0.5 Mg/3 Ml) 3 ml NEB Q4H PRN PRN Reason: Dyspnea Melatonin (Melatonin) 3 mg PO BEDTIME PRN PRN Reason: Sleep Last Admin: 05/30/20 21:00 Dose: 3 mg Documented by: Nystatin (Nystop) 1 gm TOP BID [facility] Last Admin: 05/30/20 21:00 Dose: 1 gm Documented by: Warfarin Sodium (Coumadin) 5 mg PO DAILY@1800 [facility] Last Admin: 05/30/20 21:00 Dose: 5 mg Documented by: Discontinued Medications Albuterol/Ipratropium (Duoneb 3.0-0.5 Mg/3 Ml) Confirm Administered Dose 3 ml .ROUTE .STK-MED ONE Stop: 05/30/20 15:34 Last Admin: 05/30/20 22:12 Dose: Not Given Documented by: Furosemide (Lasix) 40 mg IVPUSH NOW STA Stop: 05/30/20 16:53 Last Admin: 05/30/20 18:13 Dose: 40 mg Documented by: Furosemide (Lasix) Confirm Administered Dose 40 mg .ROUTE .STK-MED ONE Stop: 05/30/20 18:21 Last Admin: 05/30/20 22:12 Dose: Not Given Documented by: Warfarin Sodium (Coumadin) 6 mg PO DAILY@1800 [facility] Last Admin: 05/30/20 23:11 Dose: Not Given Documented by: - Exam Quality Assessment: Supplemental Oxygen (with BIPAP at night(4L)) General: Alert, Oriented, Cooperative HEENT: Pupils Equal, Pupils Reactive, EOMI Neck: Supple Lungs: Decreased Breath Sounds, Rhonchi Cardiovascular: Regular Rate, Regular Rhythm GI/Abdominal Exam: Normal Bowel Sounds, Soft, Non-Tender Extremities: Normal Inspection, Other (venous stasis dermatitis and hemosiderin discoloration of the ankles and calves) Sepsis Event Note - Evaluation Sepsis Screening Result: No Definite Risk - Focused Exam Vital Signs: Vital Signs Temp Pulse Resp BP Pulse Ox 05/31/20 07:41 36.2 C 70 20 126/80 97 05/31/20 05:52 90 L 05/31/20 05:00 36.1 C 74 18 116/65 90 L 05/31/20 00:54 36.1 C 76 18 129/67 88 L 05/30/20 22:45 92 L 05/30/20 21:31 36.5 C 84 18 120/71 91 L - Problem List & Annotations (1) Acute and chronic respiratory failure ([id number]) SNOMED Code(s): 17547731 Code(s): J96.20 - ACUTE AND CHR RESP FAILURE, UNSP W HYPOXIA OR HYPERCAPNIA Status: Acute Priority: High Current Visit: Yes (2) CHF, Congestive heart failure SNOMED Code(s): 08877152 Code(s): I50.9 - HEART FAILURE, UNSPECIFIED Status: Chronic Priority: High Current Visit: Yes (3) Hypoxia SNOMED Code(s): 998596244 Code(s): R09.02 - HYPOXEMIA Status: Acute Priority: High Current Visit: Yes (4) Compensated respiratory acidosis SNOMED Code(s): 96194361 Code(s): E87.2 - ACIDOSIS Status: Acute Current Visit: Yes - Problem List Review Problem List Initiated/Reviewed/Updated: Yes - My Orders Last 24 Hours: My Active Orders 05/31/20 11:00 ABG [BLOOD GAS ARTERIAL] [BG] Timed - Plan Plan:: Patient has worsening ABG. Discussed with patient and will repeat ABG in the next few hours. Discussed f/u records for further management of acute respiratory failure. We will continue to monitor oxygen saturation. Patient currently in respiratory acidosis and compensatory metabolic alkalosis.
[2020-05-31] MEDS: Nystatin Topical Powder 15 GM Bottle TOP SCH ×2 (09:00→19:51)
[2020-05-31] MEDS ORDERED: methylPREDNISolone Sodium Succinate 125 MG/2 ML SDV IV ONE (12:40)
[2020-05-31] MEDS ORDERED: Albuterol/Ipratropium 3.0-0.5 MG/3 ML Neb Soln NEB STA (13:19)
--- NOTE | 2020-05-31 13:26 | PCM.PN ---
- General Info Date of Service: 05/31/20 - Review of Systems General: Reports: No Symptoms HEENT: Reports: No Symptoms Pulmonary: Reports: Shortness of Breath. Denies: Wheezing Cardiovascular: Reports: No Symptoms, Dyspnea on Exertion, Edema Gastrointestinal: Reports: No Symptoms Genitourinary: Reports: No Symptoms Musculoskeletal: Reports: No Symptoms Neurological: Reports: No Symptoms Psychiatric: Reports: No Symptoms - Patient Data Vitals - Most Recent: Last Vital Signs Temp 97.8 F 05/31/20 11:01 Pulse 74 05/31/20 11:01 Resp 18 05/31/20 11:01 BP 128/75 05/31/20 11:01 Pulse Ox 95 05/31/20 11:01 Weight - Most Recent: 384 lb 12.8 oz I&O - Last 24 Hours: Intake & Output 05/30/20 05/31/20 05/31/20 22:59 06:59 14:59 Intake Total 360 Balance 360 Lab Results Last 24 Hours: Laboratory Results - last 24 hr 05/30/20 05/30/20 05/30/20 Range/Units 08:07 15:50 15:50 WBC 6.0 D (4.0-11.0) K/uL RBC 5.16 (4.50-6.50) M/uL Hgb 13.6 (13.0-18.0) g/dL Hct 45.0 (40.0-54.0) % MCV 87 (76-96) fL MCH 26.4 L (27.0-32.0) pg MCHC 30.2 L (31.0-35.0) g/dL RDW 17.0 H (11.0-16.0) % Plt Count 199 (150-400) K/uL MPV 9.9 (6.0-10.0) fL Neut % (Auto) 67.0 (45.0-70.0) % Lymph % (Auto) 14.8 L (20.0-40.0) % Bryan % (Auto) 10.6 H (3.0-10.0) % Eos % (Auto) 7.3 H (1.0-5.0) % Baso % (Auto) 0.3 (0.0-0.5) % Neut # (Auto) 4.04 (2.00-7.50) K/uL Lymph # (Auto) 0.89 L (1.50-4.00) K/uL Bryan # (Auto) 0.64 (0.20-0.80) K/uL Eos # (Auto) 0.44 H (0.04-0.40) K/uL Baso # (Auto) 0.02 (0.02-0.10) K/uL PT 21.0 H D (9.0-11.5) sec INR 2.1 D (1.0-3.5) ABG pH 7.40 (7.35-7.45) ABG pCO2 63.2 H* (35-45) mmHg ABG pO2 60 L (80-105) mmHg ABG HCO3 39.2 H (22-26) mmol/L ABG O2 Saturation 89 L (95-98) % ABG Base Excess 14 H (-2-2) [place]ura Test Positive O2 Delivery Device Nasal cannula Sodium (136-145) mmol/L Potassium (3.5-5.1) mmol/L Chloride (98-107) mmol/L Carbon Dioxide (21.0-32.0) mmol/L Anion Gap (5.0-15.0) mmol/L BUN (8-26) mg/dL Creatinine (0.70-1.30) mg/dL Est Cr Clr Drug Dosing mL/min Estimated GFR (MDRD) (>60) MLS/MIN BUN/Creatinine Ratio (6-25) Glucose (74-100) mg/dL Calcium (8.5-10.1) mg/dL Total Bilirubin (0.0-1.0) mg/dL AST (15-37) U/L ALT (12-78) U/L Alkaline Phosphatase (46-116) U/L B-Natriuretic Peptide (0-125) pg/mL Total Protein (6.4-8.2) g/dL Albumin (3.4-5.0) g/dL Globulin (2.2-4.2) g/dL Albumin/Globulin Ratio (0.8-2.0) 05/30/20 05/30/20 05/31/20 Range/Units 15:50 15:50 07:15 WBC (4.0-11.0) K/uL RBC (4.50-6.50) M/uL Hgb (13.0-18.0) g/dL Hct (40.0-54.0) % MCV (76-96) fL MCH (27.0-32.0) pg MCHC (31.0-35.0) g/dL RDW (11.0-16.0) % Plt Count (150-400) K/uL MPV (6.0-10.0) fL Neut % (Auto) (45.0-70.0) % Lymph % (Auto) (20.0-40.0) % Bryan % (Auto) (3.0-10.0) % Eos % (Auto) (1.0-5.0) % Baso % (Auto) (0.0-0.5) % Neut # (Auto) (2.00-7.50) K/uL Lymph # (Auto) (1.50-4.00) K/uL Bryan # (Auto) (0.20-0.80) K/uL Eos # (Auto) (0.04-0.40) K/uL Baso # (Auto) (0.02-0.10) K/uL PT (9.0-11.5) sec INR (1.0-3.5) ABG pH 7.38 7.33 L (7.35-7.45) ABG pCO2 62.8 H* D 75.3 H* (35-45) mmHg ABG pO2 58 L* D 61 L (80-105) mmHg ABG HCO3 37.2 H 39.4 H (22-26) mmol/L ABG O2 Saturation 88 L 88 L (95-98) % ABG Base Excess 12 H 13 H (-2-2) [place] Test Positive Positive O2 Delivery Device Nasal cannula Nasal cannula Sodium 145 (136-145) mmol/L Potassium 4.1 (3.5-5.1) mmol/L Chloride 105 (98-107) mmol/L Carbon Dioxide 37.5 H (21.0-32.0) mmol/L Anion Gap 6.6 (5.0-15.0) mmol/L BUN 15 D (8-26) mg/dL Creatinine 0.99 (0.70-1.30) mg/dL Est Cr Clr Drug Dosing 77.30 mL/min Estimated GFR (MDRD) > 60 (>60) MLS/MIN BUN/Creatinine Ratio 15.2 (6-25) Glucose 123 H D (74-100) mg/dL Calcium 9.1 (8.5-10.1) mg/dL Total Bilirubin 1.0 D (0.0-1.0) mg/dL AST 20 (15-37) U/L ALT 32 (12-78) U/L Alkaline Phosphatase 45 L (46-116) U/L B-Natriuretic Peptide 874 H D (0-125) pg/mL Total Protein 7.0 (6.4-8.2) g/dL Albumin 3.0 L (3.4-5.0) g/dL Globulin 4.0 (2.2-4.2) g/dL Albumin/Globulin Ratio 0.8 (0.8-2.0) / Range/Units 11:30 WBC (4.0-11.0) K/uL RBC (4.50-6.50) M/uL Hgb (13.0-18.0) g/dL Hct (40.0-54.0) % MCV (76-96) fL MCH (27.0-32.0) pg MCHC (31.0-35.0) g/dL RDW (11.0-16.0) % Plt Count (150-400) K/uL MPV (6.0-10.0) fL Neut % (Auto) (45.0-70.0) % Lymph % (Auto) (20.0-40.0) % Bryan % (Auto) (3.0-10.0) % Eos % (Auto) (1.0-5.0) % Baso % (Auto) (0.0-0.5) % Neut # (Auto) (2.00-7.50) K/uL Lymph # (Auto) (1.50-4.00) K/uL Bryan # (Auto) (0.20-0.80) K/uL Eos # (Auto) (0.04-0.40) K/uL Baso # (Auto) (0.02-0.10) K/uL PT (9.0-11.5) sec INR (1.0-3.5) ABG pH 7.30 L (7.35-7.45) ABG pCO2 86.3 H* (35-45) mmHg ABG pO2 75 L D (80-105) mmHg ABG HCO3 42.8 H (22-26) mmol/L ABG O2 Saturation 92 L (95-98) % ABG Base Excess 16 H (-2-2) [place] Test Positive O2 Delivery Device Nasal cannula Sodium (136-145) mmol/L Potassium (3.5-5.1) mmol/L Chloride (98-107) mmol/L Carbon Dioxide (21.0-32.0) mmol/L Anion Gap (5.0-15.0) mmol/L BUN (8-26) mg/dL Creatinine (0.70-1.30) mg/dL Est Cr Clr Drug Dosing mL/min Estimated GFR (MDRD) (>60) MLS/MIN BUN/Creatinine Ratio (6-25) Glucose (74-100) mg/dL Calcium (8.5-10.1) mg/dL Total Bilirubin (0.0-1.0) mg/dL AST (15-37) U/L ALT (12-78) U/L Alkaline Phosphatase (46-116) U/L B-Natriuretic Peptide (0-125) pg/mL Total Protein (6.4-8.2) g/dL Albumin (3.4-5.0) g/dL Globulin (2.2-4.2) g/dL Albumin/Globulin Ratio (0.8-2.0) Med Orders - Current: Current Medications Acetaminophen (Tylenol Extra Strength) 500 mg PO Q6H PRN PRN Reason: Pain Last Admin: 05/31/20 05:41 Dose: 500 mg Documented by: Albuterol/Ipratropium (Duoneb 3.0-0.5 Mg/3 Ml) 3 ml NEB Q2H PRN PRN Reason: Dyspnea Albuterol/Ipratropium (Duoneb 3.0-0.5 Mg/3 Ml) 3 ml NEB Q4H STA Stop: 05/31/20 13:07 Azithromycin 500 mg/ Sodium (Chloride) 250 mls @ 250 mls/hr IV Q24H PEPITO Ceftriaxone Sodium 1 gm/ (Sodium Chloride) 50 mls @ 200 mls/hr IV Q24H [facility] Melatonin (Melatonin) 3 mg PO BEDTIME PRN PRN Reason: Sleep Last Admin: 05/30/20 21:00 Dose: 3 mg Documented by: Nystatin (Nystop) 1 gm TOP BID [facility]PITO Last Admin: 05/31/20 09:00 Dose: 1 gm Documented by: Warfarin Sodium (Coumadin) 5 mg PO DAILY@1800 [facility] Last Admin: 05/30/20 21:00 Dose: 5 mg Documented by: Discontinued Medications Albuterol/Ipratropium (Duoneb 3.0-0.5 Mg/3 Ml) Confirm Administered Dose 3 ml .ROUTE .STK-MED ONE Stop: 05/30/20 15:34 Last Admin: 05/30/20 22:12 Dose: Not Given Documented by: Albuterol/Ipratropium (Duoneb 3.0-0.5 Mg/3 Ml) 3 ml NEB Q4H PRN PRN Reason: Dyspnea Last Admin: 05/31/20 12:37 Dose: 3 ml Documented by: Furosemide (Lasix) 40 mg IVPUSH NOW STA Stop: 05/30/20 16:53 Last Admin: 05/30/20 18:13 Dose: 40 mg Documented by: Furosemide (Lasix) Confirm Administered Dose 40 mg .ROUTE .STK-MED ONE Stop: 05/30/20 18:21 Last Admin: 05/30/20 22:12 Dose: Not Given Documented by: Methylprednisolone Sodium Succinate (Solu-Medrol) 125 mg IV ONETIME ONE Stop: 05/31/20 12:41 Warfarin Sodium (Coumadin) 6 mg PO DAILY@1800 [facility] Last Admin: 05/30/20 23:11 Dose: Not Given Documented by: Sepsis Event Note - Evaluation Sepsis Screening Result: No Definite Risk - Focused Exam Vital Signs: Vital Signs Temp Pulse Resp BP Pulse Ox 05/31/20 11:01 97.8 F 74 18 128/75 95 05/31/20 07:41 97.2 F 70 20 126/80 97 05/31/20 05:52 90 L 05/31/20 05:00 97 F 74 18 116/65 90 L - Problem List Review Problem List Initiated/Reviewed/Updated: Yes - My Orders Last 24 Hours: My Active Orders 05/30/20 16:53 Admission Status [Patient Status] [ADT] Routine 05/30/20 Dinner Heart Healthy Diet [DIET] 05/30/20 17:31 Patient Status [ADT] Routine Oxygen Therapy [RC] CONTINUOUS Vital Signs [RC] Q4H 05/30/20 17:32 Intake and Output [RC] QSHIFT Pulse Oximetry [RC] CONTINUOUS 05/30/20 20:00 Acetaminophen [Tylenol Extra Strength] 500 mg PO Q6H PRN Melatonin 3 mg PO BEDTIME PRN Nystatin [Nystop] 1 gm TOP BID 05/30/20 21:00 CULTURE MRSA SURVEY [RM] Routine 05/30/20 22:17 RT Aerosol Therapy [RC] ASDIRECTED 05/30/20 22:18 IS (RT) [RT Incentive Spirometry] [RC] Q2HWA 05/30/20 23:00 Warfarin [Coumadin] 5 mg PO DAILY@1800 05/31/20 00:13 Resuscitation Status Routine 05/31/20 00:40 Daily Weight [Height and Weight] [RC] DAILY 05/31/20 12:34 Albuterol/Ipratropium [DuoNeb 3.0-0.5 MG/3 ML] 3 ml NEB Q2H PRN 05/31/20 12:36 RT Aerosol Therapy [RC] ASDIRECTED 05/31/20 13:06 RT BiPAP/CPAP [RC] ASDIRECTED 05/31/20 13:06 Albuterol/Ipratropium [DuoNeb 3.0-0.5 MG/3 ML] 3 ml NEB Q4H STA 05/31/20 13:07 RT Aerosol Therapy [RC] ASDIRECTED 05/31/20 13:15 Azithromycin [Zithromax] 500 mg Sodium Chloride 0.9% [Normal Saline] 250 ml IV Q24H cefTRIAXone [Rocephin] 1 gm Sodium Chloride 0.9% [Normal Saline] 50 ml IV Q24H 05/31/20 14:15 ABG [BLOOD GAS ARTERIAL] [BG] Routine - Assessment Assessment:: Patient has increased PCO2 on 1130 ABG's, this prompted Peg RN to call [facility], at that timew they were unable to establish a tele connection, so I was called in. VO for duo neb and 125mg IV solumedrol given and completed upon arrival. Spoke Dr. De Oliveira from [place] and she recommends patient to be started on 500mg IV azithromycin and 1 gram IV rocephin. Patient was also placed on duonebs Q4H, cpap settings per Dr. Vizcarra 24/03, inline O2 Fio2 45- 50. ABG's will be drawn 1 hour after starting CPAP. On assessment patient is not in distress, able to speak in full sentences, no wheezing, rales or rhonchi bilaterally, skin warm pink and dry with normal cap refill. bilateral LE edema remains at baseline. Patient has no c/o at this time. - Plan Plan:: Patient has worsening ABG. Discussed with patient and will repeat ABG in the next few hours. Discussed f/u records for further management of acute respiratory failure. We will continue to monitor oxygen saturation. Patient currently in respiratory acidosis and compensatory metabolic alkalosis.
[2020-05-31] MEDS: cefTRIAXone 1 GM in Sodium Chloride 0.9% 50 ML IV SCH (13:35)
[2020-05-31] MEDS: Azithromycin 500 MG in Sodium Chloride 0.9% 250 ML IV SCH (14:34)
--- NOTE | 2020-05-31 15:52 | PCM.PN ---
- General Info Date of Service: 05/31/20 - Patient Data Vitals - Most Recent: Last Vital Signs Temp 36.6 C 05/31/20 11:01 Pulse 74 05/31/20 11:01 Resp 18 05/31/20 11:01 BP 128/75 05/31/20 11:01 Pulse Ox 95 05/31/20 11:01 Weight - Most Recent: 174.542 kg I&O - Last 24 Hours: Intake & Output 05/31/20 05/31/20 05/31/20 06:59 14:59 22:59 Intake Total 360 Balance 360 Lab Results Last 24 Hours: Laboratory Results - last 24 hr 05/30/20 05/30/20 05/30/20 Range/Units 08:07 15:50 15:50 WBC 6.0 D (4.0-11.0) K/uL RBC 5.16 (4.50-6.50) M/uL Hgb 13.6 (13.0-18.0) g/dL Hct 45.0 (40.0-54.0) % MCV 87 (76-96) fL MCH 26.4 L (27.0-32.0) pg MCHC 30.2 L (31.0-35.0) g/dL RDW 17.0 H (11.0-16.0) % Plt Count 199 (150-400) K/uL MPV 9.9 (6.0-10.0) fL Neut % (Auto) 67.0 (45.0-70.0) % Lymph % (Auto) 14.8 L (20.0-40.0) % Graves % (Auto) 10.6 H (3.0-10.0) % Eos % (Auto) 7.3 H (1.0-5.0) % Baso % (Auto) 0.3 (0.0-0.5) % Neut # (Auto) 4.04 (2.00-7.50) K/uL Lymph # (Auto) 0.89 L (1.50-4.00) K/uL Graves # (Auto) 0.64 (0.20-0.80) K/uL Eos # (Auto) 0.44 H (0.04-0.40) K/uL Baso # (Auto) 0.02 (0.02-0.10) K/uL PT 21.0 H D (9.0-11.5) sec INR 2.1 D (1.0-3.5) ABG pH 7.40 (7.35-7.45) ABG pCO2 63.2 H* (35-45) mmHg ABG pO2 60 L (80-105) mmHg ABG HCO3 39.2 H (22-26) mmol/L ABG O2 Saturation 89 L (95-98) % ABG Base Excess 14 H (-2-2) [place] Test Positive O2 Delivery Device Nasal cannula Sodium (136-145) mmol/L Potassium (3.5-5.1) mmol/L Chloride (98-107) mmol/L Carbon Dioxide (21.0-32.0) mmol/L Anion Gap (5.0-15.0) mmol/L BUN (8-26) mg/dL Creatinine (0.70-1.30) mg/dL Est Cr Clr Drug Dosing mL/min Estimated GFR (MDRD) (>60) MLS/MIN BUN/Creatinine Ratio (6-25) Glucose (74-100) mg/dL Calcium (8.5-10.1) mg/dL Total Bilirubin (0.0-1.0) mg/dL AST (15-37) U/L ALT (12-78) U/L Alkaline Phosphatase (46-116) U/L B-Natriuretic Peptide (0-125) pg/mL Total Protein (6.4-8.2) g/dL Albumin (3.4-5.0) g/dL Globulin (2.2-4.2) g/dL Albumin/Globulin Ratio (0.8-2.0) COVID-19 (DAI) 05/30/20 05/30/20 05/31/20 Range/Units 15:50 15:50 07:15 WBC (4.0-11.0) K/uL RBC (4.50-6.50) M/uL Hgb (13.0-18.0) g/dL Hct (40.0-54.0) % MCV (76-96) fL MCH (27.0-32.0) pg MCHC (31.0-35.0) g/dL RDW (11.0-16.0) % Plt Count (150-400) K/uL MPV (6.0-10.0) fL Neut % (Auto) (45.0-70.0) % Lymph % (Auto) (20.0-40.0) % Graves % (Auto) (3.0-10.0) % Eos % (Auto) (1.0-5.0) % Baso % (Auto) (0.0-0.5) % Neut # (Auto) (2.00-7.50) K/uL Lymph # (Auto) (1.50-4.00) K/uL Graves # (Auto) (0.20-0.80) K/uL Eos # (Auto) (0.04-0.40) K/uL Baso # (Auto) (0.02-0.10) K/uL PT (9.0-11.5) sec INR (1.0-3.5) ABG pH 7.38 7.33 L (7.35-7.45) ABG pCO2 62.8 H* D 75.3 H* (35-45) mmHg ABG pO2 58 L* D 61 L (80-105) mmHg ABG HCO3 37.2 H 39.4 H (22-26) mmol/L ABG O2 Saturation 88 L 88 L (95-98) % ABG Base Excess 12 H 13 H (-2-2) [place] Test Positive Positive O2 Delivery Device Nasal cannula Nasal cannula Sodium 145 (136-145) mmol/L Potassium 4.1 (3.5-5.1) mmol/L Chloride 105 (98-107) mmol/L Carbon Dioxide 37.5 H (21.0-32.0) mmol/L Anion Gap 6.6 (5.0-15.0) mmol/L BUN 15 D (8-26) mg/dL Creatinine 0.99 (0.70-1.30) mg/dL Est Cr Clr Drug Dosing 77.30 mL/min Estimated GFR (MDRD) > 60 (>60) MLS/MIN BUN/Creatinine Ratio 15.2 (6-25) Glucose 123 H D (74-100) mg/dL Calcium 9.1 (8.5-10.1) mg/dL Total Bilirubin 1.0 D (0.0-1.0) mg/dL AST 20 (15-37) U/L ALT 32 (12-78) U/L Alkaline Phosphatase 45 L (46-116) U/L B-Natriuretic Peptide 874 H D (0-125) pg/mL Total Protein 7.0 (6.4-8.2) g/dL Albumin 3.0 L (3.4-5.0) g/dL Globulin 4.0 (2.2-4.2) g/dL Albumin/Globulin Ratio 0.8 (0.8-2.0) COVID-19 (DAI) 05/31/20 05/31/20 05/31/20 Range/Units 11:30 13:45 14:08 WBC (4.0-11.0) K/uL RBC (4.50-6.50) M/uL Hgb (13.0-18.0) g/dL Hct (40.0-54.0) % MCV (76-96) fL MCH (27.0-32.0) pg MCHC (31.0-35.0) g/dL RDW (11.0-16.0) % Plt Count (150-400) K/uL MPV (6.0-10.0) fL Neut % (Auto) (45.0-70.0) % Lymph % (Auto) (20.0-40.0) % Graves % (Auto) (3.0-10.0) % Eos % (Auto) (1.0-5.0) % Baso % (Auto) (0.0-0.5) % Neut # (Auto) (2.00-7.50) K/uL Lymph # (Auto) (1.50-4.00) K/uL Graves # (Auto) (0.20-0.80) K/uL Eos # (Auto) (0.04-0.40) K/uL Baso # (Auto) (0.02-0.10) K/uL PT (9.0-11.5) sec INR (1.0-3.5) ABG pH 7.30 L 7.31 L (7.35-7.45) ABG pCO2 86.3 H* 75.9 H* (35-45) mmHg ABG pO2 75 L D 67 L (80-105) mmHg ABG HCO3 42.8 H 38.6 H (22-26) mmol/L ABG O2 Saturation 92 L 90 L (95-98) % ABG Base Excess 16 H 12 H (-2-2) [place] Test Positive Positive O2 Delivery Device Nasal cannula Cpap Sodium (136-145) mmol/L Potassium (3.5-5.1) mmol/L Chloride (98-107) mmol/L Carbon Dioxide (21.0-32.0) mmol/L Anion Gap (5.0-15.0) mmol/L BUN (8-26) mg/dL Creatinine (0.70-1.30) mg/dL Est Cr Clr Drug Dosing mL/min Estimated GFR (MDRD) (>60) MLS/MIN BUN/Creatinine Ratio (6-25) Glucose (74-100) mg/dL Calcium (8.5-10.1) mg/dL Total Bilirubin (0.0-1.0) mg/dL AST (15-37) U/L ALT (12-78) U/L Alkaline Phosphatase (46-116) U/L B-Natriuretic Peptide (0-125) pg/mL Total Protein (6.4-8.2) g/dL Albumin (3.4-5.0) g/dL Globulin (2.2-4.2) g/dL Albumin/Globulin Ratio (0.8-2.0) COVID-19 (DAI) Negative Med Orders - Current: Current Medications Acetaminophen (Tylenol Extra Strength) 500 mg PO Q6H PRN PRN Reason: Pain Last Admin: 05/31/20 05:41 Dose: 500 mg Documented by: Albuterol/Ipratropium (Duoneb 3.0-0.5 Mg/3 Ml) 3 ml NEB Q2H PRN PRN Reason: Dyspnea Azithromycin 500 mg/ Sodium (Chloride) 250 mls @ 250 mls/hr IV Q24H [facility]O Last Admin: 05/31/20 14:34 Dose: 250 mls/hr Documented by: Ceftriaxone Sodium 1 gm/ (Sodium Chloride) 50 mls @ 200 mls/hr IV Q24H [facility] Last Admin: 05/31/20 13:35 Dose: 200 mls/hr Documented by: Melatonin (Melatonin) 3 mg PO BEDTIME PRN PRN Reason: Sleep Last Admin: 05/30/20 21:00 Dose: 3 mg Documented by: Nystatin (Nystop) 1 gm TOP BID [facility] Last Admin: 05/31/20 09:00 Dose: 1 gm Documented by: Warfarin Sodium (Coumadin) 5 mg PO DAILY@1800 [facility] Last Admin: 05/30/20 21:00 Dose: 5 mg Documented by: Discontinued Medications Albuterol/Ipratropium (Duoneb 3.0-0.5 Mg/3 Ml) Confirm Administered Dose 3 ml .ROUTE .STK-MED ONE Stop: 05/30/20 15:34 Last Admin: 05/30/20 22:12 Dose: Not Given Documented by: Albuterol/Ipratropium (Duoneb 3.0-0.5 Mg/3 Ml) 3 ml NEB Q4H PRN PRN Reason: Dyspnea Last Admin: 05/31/20 12:37 Dose: 3 ml Documented by: Albuterol/Ipratropium (Duoneb 3.0-0.5 Mg/3 Ml) 3 ml NEB ONETIME STA Stop: 05/31/20 13:20 Furosemide (Lasix) 40 mg IVPUSH NOW STA Stop: 05/30/20 16:53 Last Admin: 05/30/20 18:13 Dose: 40 mg Documented by: Furosemide (Lasix) Confirm Administered Dose 40 mg .ROUTE .STK-MED ONE Stop: 05/30/20 18:21 Last Admin: 05/30/20 22:12 Dose: Not Given Documented by: Methylprednisolone Sodium Succinate (Solu-Medrol) 125 mg IV ONETIME ONE Stop: 05/31/20 12:41 Last Admin: 05/31/20 12:40 Dose: 125 mg Documented by: Warfarin Sodium (Coumadin) 6 mg PO DAILY@1800 [facility] Last Admin: 05/30/20 23:11 Dose: Not Given Documented by: Sepsis Event Note - Evaluation Sepsis Screening Result: No Definite Risk - Focused Exam Vital Signs: Vital Signs Temp Pulse Resp BP Pulse Ox 05/31/20 11:01 36.6 C 74 18 128/75 95 05/31/20 07:41 36.2 C 70 20 126/80 97 05/31/20 05:52 90 L 05/31/20 05:00 36.1 C 74 18 116/65 90 L - Problem List & Annotations (1) Acute and chronic respiratory failure ([id number]) SNOMED Code(s): 37539792 Code(s): J96.20 - ACUTE AND CHR RESP FAILURE, UNSP W HYPOXIA OR HYPERCAPNIA Status: Acute Priority: High Current Visit: Yes - Problem List Review Problem List Initiated/Reviewed/Updated: Yes - My Orders Last 24 Hours: My Active Orders 05/31/20 15:45 INR,PT,PROTHROMBIN TIME [COAG] Routine - Assessment Assessment:: Patient has increased PCO2 on 1130 ABG's, this [facility], at that timew they were unable to establish a tele connection, so I was called in. VO for duo neb and 125mg IV solumedrol given and completed upon arrival. Spoke Dr. De Oliveira from [place] and she recommends patient to be started on 500mg IV azithromycin and 1 gram IV rocephin. Patient was also placed on duonebs Q4H, cpap settings per Dr. Vizcarra 24/03, inline O2 Fio2 45- 50. ABG's will be drawn 1 hour after starting CPAP. On assessment patient is not in distress, able to speak in full sentences, no wheezing, rales or rhonchi bilaterally, skin warm pink and dry with normal cap refill. bilateral LE edema remains at baseline. Patient has no c/o at this time. - Plan Plan:: [facility] Hospitalist CONSULTATION NOTE: eHospitalist was contacted by Dr. Alford with request of consultation for medical management: Reason for consult: Hypoxic, hypercarbic respiratory failure HPI: Patient is a 70-year-old male with pmh of COPD on 4 L O2 at home, ARASELI on CPAP nightly, morbid obesity, CHF, history of PE on Coumadin who presented to [facility] with complaints of acute shortness of breath for the last couple days. Patient had been recently admitted in [place] for CHF exacerbation, respiratory acidosis, was transferred to CCU and then discharged home. Patient says that he had been doing well until he developed respiratory distress again. Denies any fevers or chills, does endorse cough with productive sputum, no change in color of sputum. Says he has some upper abdominal/lower chest pain on and off, denies any at the time of my exam. Denies any abdominal pain, nausea or vomiting, lower extremity swelling. Patient was admitted at [facility] on 05/30, given one dose of IV lasix, started on O2 via NC. ABGs showed progressively worsening hypoxia, hypercarbia although his vitals and pulse ox saturations >92%. Home Medications: warfarin Pertinent Medical History: COPD on 4 L O2 at home, ARASELI on CPAP nightly, morbid obesity, CHF, history of PE on Coumadin Pertinent Social History: Former smoker Exam (performed via interactive video with assistance of bedside nurse): General: Alert, cooperative, no acute distress HEENT: Oral mucosa pink and moist without erythema. On BiPAP at the time of my exam Lungs: Clear to auscultation bilaterally without crackles, no wheezing heard CV: Regular rate and rhythm, no murmurs appreciated Abd: Obese abdomen Ext: 1-2+ pitting edema custodial up to his knees bilaterally. Has chronic bilateral lower extremity skin changes Skin: No rashes Neuro: Alert and oriented, moving all extremities Labs: CBC with normal WBC, hemoglobin and hematocrit. BMP with CO2 37.5, lytes otherwise normal. COVID-19 PCR negative. INR 2.1 yesterday. ABG at 11:30 AM: 7.30/80 6.3/70 5/42.8 on 4 L nasal cannula. Repeat ABG at 2 PM: 7.31/70 5.9/60 7/38.6 on BiPAP at 14/6, 40% FiO2. Assessment and Plan: #Acute on chronic hypoxic hypercarbic respiratory failure Likely multifactorial from COPD exacerbation, CHF exacerbation. BNP on admission was in the 800s although this could be inaccurate given his BMI. Does not appear to overly volume overloaded on my exam. Did receive 1 dose of IV Lasix 40 mg yesterday. -We will hold off on further diuresis. -Started on IV Solu-Medrol, IV Rocephin and azithromycin this a.m.-continue. -Continue duo nebs every 4 as needed for wheezing or shortness of breath. -We will increase FiO2 to 50%. -Follow-up repeat ABG at 4 PM -Consider transfer to higher level of care if clinically worsens. #History of PE Has chronic lower extremity skin changes but no calf tenderness. INR therapeutic yesterday at 2.1. -Follow-up repeat INR today. -Consider Lovenox SQ twice daily if INR today is less than 2. Thank you for including Jerrod Mak in the patients care. This service is available for further assistance as requested by your care team by calling [phone].
--- NOTE | 2020-05-31 16:56 | PCM.PN ---
- General Info Date of Service: 05/31/20 Functional Status: Reports: Pain Controlled - Review of Systems General: Reports: No Symptoms HEENT: Reports: No Symptoms Pulmonary: Reports: No Symptoms (patient on bipap, reports no SOB) Cardiovascular: Reports: Edema Gastrointestinal: Reports: No Symptoms Genitourinary: Reports: No Symptoms Musculoskeletal: Reports: No Symptoms Skin: Reports: No Symptoms Neurological: Reports: No Symptoms. Denies: Confusion Psychiatric: Reports: No Symptoms - Patient Data Vitals - Most Recent: Last Vital Signs Temp 97 F 05/31/20 13:37 Pulse 82 05/31/20 13:37 Resp 16 05/31/20 13:37 BP 113/66 05/31/20 13:37 Pulse Ox 92 L 05/31/20 13:37 Weight - Most Recent: 384 lb 12.8 oz I&O - Last 24 Hours: Intake & Output 05/31/20 05/31/20 05/31/20 06:59 14:59 22:59 Intake Total 360 Balance 360 Lab Results Last 24 Hours: Laboratory Results - last 24 hr 05/30/20 05/30/20 05/31/20 Range/Units 08:07 15:50 07:15 PT Cancelled INR Cancelled Whole Blood INR (1.0-3.5) ABG pH 7.40 7.33 L (7.35-7.45) ABG pCO2 63.2 H* 75.3 H* (35-45) mmHg ABG pO2 60 L 61 L (80-105) mmHg ABG HCO3 39.2 H 39.4 H (22-26) mmol/L ABG O2 Saturation 89 L 88 L (95-98) % ABG Base Excess 14 H 13 H (-2-2) [place] Test Positive Positive O2 Delivery Device Nasal cannula Nasal cannula COVID-19 (DAI) 05/31/20 05/31/20 05/31/20 Range/Units 11:30 13:45 14:08 PT INR Whole Blood INR (1.0-3.5) ABG pH 7.30 L 7.31 L (7.35-7.45) ABG pCO2 86.3 H* 75.9 H* (35-45) mmHg ABG pO2 75 L D 67 L (80-105) mmHg ABG HCO3 42.8 H 38.6 H (22-26) mmol/L ABG O2 Saturation 92 L 90 L (95-98) % ABG Base Excess 16 H 12 H (-2-2) [place] Test Positive Positive O2 Delivery Device Nasal cannula Cpap COVID-19 (DAI) Negative 05/31/20 05/31/20 Range/Units 16:00 16:00 PT INR Whole Blood INR 1.8 (1.0-3.5) ABG pH 7.32 L (7.35-7.45) ABG pCO2 71.3 H* (35-45) mmHg ABG pO2 98 D (80-105) mmHg ABG HCO3 36.3 H (22-26) mmol/L ABG O2 Saturation 97 (95-98) % ABG Base Excess 10 H (-2-2) [place] Test Not Reportable O2 Delivery Device Bipap COVID-19 (DAI) Med Orders - Current: Current Medications Acetaminophen (Tylenol Extra Strength) 500 mg PO Q6H PRN PRN Reason: Pain Last Admin: 05/31/20 05:41 Dose: 500 mg Documented by: Albuterol/Ipratropium (Duoneb 3.0-0.5 Mg/3 Ml) 3 ml NEB Q2H PRN PRN Reason: Dyspnea Azithromycin 500 mg/ Sodium (Chloride) 250 mls @ 250 mls/hr IV Q24H [facility] Last Admin: 05/31/20 14:34 Dose: 250 mls/hr Documented by: Ceftriaxone Sodium 1 gm/ (Sodium Chloride) 50 mls @ 200 mls/hr IV Q24H [facility] Last Admin: 05/31/20 13:35 Dose: 200 mls/hr Documented by: Melatonin (Melatonin) 3 mg PO BEDTIME PRN PRN Reason: Sleep Last Admin: 05/30/20 21:00 Dose: 3 mg Documented by: Nystatin (Nystop) 1 gm TOP BID [facility] Last Admin: 05/31/20 09:00 Dose: 1 gm Documented by: Warfarin Sodium (Coumadin) 5 mg PO DAILY@1800 [facility] Last Admin: 05/30/20 21:00 Dose: 5 mg Documented by: Discontinued Medications Albuterol/Ipratropium (Duoneb 3.0-0.5 Mg/3 Ml) Confirm Administered Dose 3 ml .ROUTE .STK-MED ONE Stop: 05/30/20 15:34 Last Admin: 05/30/20 22:12 Dose: Not Given Documented by: Albuterol/Ipratropium (Duoneb 3.0-0.5 Mg/3 Ml) 3 ml NEB Q4H PRN PRN Reason: Dyspnea Last Admin: 05/31/20 12:37 Dose: 3 ml Documented by: Albuterol/Ipratropium (Duoneb 3.0-0.5 Mg/3 Ml) 3 ml NEB ONETIME STA Stop: 05/31/20 13:20 Last Admin: 05/31/20 16:45 Dose: Not Given Documented by: Furosemide (Lasix) 40 mg IVPUSH NOW STA Stop: 05/30/20 16:53 Last Admin: 05/30/20 18:13 Dose: 40 mg Documented by: Furosemide (Lasix) Confirm Administered Dose 40 mg .ROUTE .STK-MED ONE Stop: 05/30/20 18:21 Last Admin: 05/30/20 22:12 Dose: Not Given Documented by: Methylprednisolone Sodium Succinate (Solu-Medrol) 125 mg IV ONETIME ONE Stop: 05/31/20 12:41 Last Admin: 05/31/20 12:40 Dose: 125 mg Documented by: Warfarin Sodium (Coumadin) 6 mg PO DAILY@1800 [facility] Last Admin: 05/30/20 23:11 Dose: Not Given Documented by: Sepsis Event Note - Evaluation Sepsis Screening Result: No Definite Risk - Focused Exam Vital Signs: Vital Signs Temp Pulse Resp BP Pulse Ox 05/31/20 13:37 97 F 82 16 113/66 92 L 05/31/20 12:36 92 L 05/31/20 11:01 97.8 F 74 18 128/75 95 05/31/20 07:41 97.2 F 70 20 126/80 97 05/31/20 05:52 90 L 05/31/20 05:00 97 F 74 18 116/65 90 L - Problem List Review Problem List Initiated/Reviewed/Updated: Yes - My Orders Last 24 Hours: My Active Orders 05/30/20 16:53 Admission Status [Patient Status] [ADT] Routine 05/30/20 Dinner Heart Healthy Diet [DIET] 05/30/20 17:31 Patient Status [ADT] Routine Oxygen Therapy [RC] CONTINUOUS Vital Signs [RC] Q4H 05/30/20 17:32 Intake and Output [RC] QSHIFT Pulse Oximetry [RC] CONTINUOUS 05/30/20 20:00 Acetaminophen [Tylenol Extra Strength] 500 mg PO Q6H PRN Melatonin 3 mg PO BEDTIME PRN Nystatin [Nystop] 1 gm TOP BID 05/30/20 21:00 CULTURE MRSA SURVEY [RM] Routine 05/30/20 22:17 RT Aerosol Therapy [RC] ASDIRECTED 05/30/20 22:18 IS (RT) [RT Incentive Spirometry] [RC] Q2HWA 05/30/20 23:00 Warfarin [Coumadin] 5 mg PO DAILY@1800 05/31/20 00:13 Resuscitation Status Routine 05/31/20 00:40 Daily Weight [Height and Weight] [RC] DAILY 05/31/20 12:34 Albuterol/Ipratropium [DuoNeb 3.0-0.5 MG/3 ML] 3 ml NEB Q2H PRN 05/31/20 12:36 RT Aerosol Therapy [RC] ASDIRECTED 05/31/20 13:07 RT Aerosol Therapy [RC] ASDIRECTED 05/31/20 13:30 Azithromycin [Zithromax] 500 mg Sodium Chloride 0.9% [Normal Saline] 250 ml IV Q24H cefTRIAXone [Rocephin] 1 gm Sodium Chloride 0.9% [Normal Saline] 50 ml IV Q24H 05/31/20 13:37 BIPAP Adult [RT BiPAP/CPAP] [RC] ASDIRECTED 05/31/20 13:39 Admission Status [Patient Status] [ADT] Routine 05/31/20 20:00 BLOOD GAS ARTERIAL [BG] Routine 06/01/20 08:00 ABG [BLOOD GAS ARTERIAL] [BG] Routine - Assessment Assessment:: Patient has increased PCO2 on 1130 ABG's, this prompted Peg RN to call [facility], at that timew they were unable to establish a tele connection, so I was called in. VO for duo neb and 125mg IV solumedrol given and completed upon arrival. Spoke Dr. De Oliveira from [facility] and she recommends patient to be started on 500mg IV azithromycin and 1 gram IV rocephin. Patient was also placed on duonebs Q4H, cpap settings per Dr. Vizcarra 24/03, inline O2 Fio2 45- 50. ABG's will be drawn 1 hour after starting CPAP. On assessment patient is not in distress, able to speak in full sentences, no wheezing, rales or rhonchi bilaterally, skin warm pink and dry with normal cap refill. bilateral LE edema remains at baseline. Patient has no c/o at this time. - Plan Plan:: [facility]su Hospitalist CONSULTATION NOTE: eHospitalist was contacted by Dr. Alford with request of consultation for medical m anagement: Reason for consult: Hypoxic, hypercarbic respiratory failure HPI: Patient is a 70-year-old male with pmh of COPD on 4 L O2 at home, ARASELI on CPAP nightly, morbid obesity, CHF, history of PE on Coumadin who presented to [facility] with complaints of acute shortness of breath for the last couple days. Patient had been recently admitted in [place] for CHF exacerbation, respiratory acidosis, was transferred to CCU and then discharged home. Patient says that he had been doing well until he developed respiratory distress again. Denies any fevers or chills, does endorse cough with productive sputum, no change in color of sputum. Says he has some upper abdominal/lower chest pain on and off, denies any at the time of my exam. Denies any abdominal pain, nausea or vomiting, lower extremity swelling. Patient was admitted at [facility] on 05/30, given one dose of IV lasix, started on O2 via NC. ABGs showed progressively worsening hypoxia, hypercarbia although his vitals and pulse ox saturations >92%. Home Medications: warfarin Pertinent Medical History: COPD on 4 L O2 at home, ARASELI on CPAP nightly, morbid obesity, CHF, history of PE on Coumadin Pertinent Social History: Former smoker Exam (performed via interactive video with assistance of bedside nurse): General: Alert, cooperative, no acute distress HEENT: Oral mucosa pink and moist without erythema. On BiPAP at the time of my exam Lungs: Clear to auscultation bilaterally without crackles, no wheezing heard CV: Regular rate and rhythm, no murmurs appreciated Abd: Obese abdomen Ext: 1-2+ pitting edema mcfp up to his knees bilaterally. Has chronic bilateral lower extremity skin changes Skin: No rashes Neuro: Alert and oriented, moving all extremities Labs: CBC with normal WBC, hemoglobin and hematocrit. BMP with CO2 37.5, lytes otherwise normal. COVID-19 PCR negative. INR 2.1 yesterday. ABG at 11:30 AM: 7.30/80 6.3/70 5/42.8 on 4 L nasal cannula. Repeat ABG at 2 PM: 7.31/70 5.9/60 7/38.6 on BiPAP at 14/6, 40% FiO2. Assessment and Plan: #Acute on chronic hypoxic hypercarbic respiratory failure Likely multifactorial from COPD exacerbation, CHF exacerbation. BNP on admission was in the 800s although this could be inaccurate given his BMI. Does not appear to overly volume overloaded on my exam. Did receive 1 dose of IV Lasix 40 mg yesterday. -We will hold off on further diuresis. -Started on IV Solu-Medrol, IV Rocephin and azithromycin this a.m.-continue. -Continue duo nebs every 4 as needed for wheezing or shortness of breath. -We will increase FiO2 to 50%. -Follow-up repeat ABG at 4 PM -Consider transfer to higher level of care if clinically worsens. #History of PE Has chronic lower extremity skin changes but no calf tenderness. INR therapeut ic yesterday at 2.1. -Follow-up repeat INR today. -Consider Lovenox SQ twice daily if INR today is less than 2. Thank you for including [facility] Hospitalist in the patients care. This service is available for further assistance as requested by your care team by calling [phone]. - Free Text/Narrative Note: Spoke with Dr. Pulido again, she advises on keeping the patient on continous bipap until tomorrow morning, rechecking an ABG at 2000 tonight and again at 0800 tomorrow morning. If PCO2 continues to trend down it is appropriate for the patient to remain inpatient in [place], if PCO2 is elevated at the 2000 ABG draw,and the patient starts to become confused, then it would be appropriate to send patient to [place]. His duonebs X2okptr will continue.
[2020-05-31] MEDS: Albuterol/Ipratropium 3.0-0.5 MG/3 ML Neb Soln NEB PRN (17:55)
[2020-05-31] MEDS: Warfarin 5 MG Tab PO SCH (18:06)
[2020-05-31] MEDS ORDERED: Enoxaparin 150 MG/1 ML Syringe SUBCUT ONE (18:15)
[2020-05-31] MEDS: Melatonin 3 MG Tab PO PRN (21:32)
--- NOTE | 2020-06-01 02:14 | PCM.SN.2 ---
- Free Text/Narrative Note: Jerrod Bustillo Hospitalist Cross Cover Note eHospitalist follow-up on ABGs. Spoke to bedside nurse regarding the patient who apparently is doing well and improving. Chart review was performed. Assessment and Intervention: 1. Hypercapnia-improving. Continue BiPAP. VBG in am.
--- NOTE | 2020-06-01 11:55 | PN ---
DATE OF VISIT: 06/01/2020 I am assuming care for Jeremy over the weekend. His case and his history are as outlined in the admission history and physical, and Dr. Alford discussed his hospitalization with me before leaving for the weekend yesterday. He has had an uneventful night. He states he feels much better than he did 2 or 3 days ago. He has been up to the bathroom a number of times, and for this reason, his intake and output has not been able to be accurately recorded. He is not short of breath at this point in time, he has been maintained on his BiPAP, occasionally switching over to O2 by nasal cannula at 3 L/minute of O2. His O2 sats on nasal cannula oxygen are 92%. His blood gases most recently this morning show pH is 7.33 with a pCO2 of 71, PO2 of 65, and a bicarb of 37. He has respiratory acidosis because of his CO2 retention with metabolic compensation. I did note that his COVID-19 swab was negative on admission. PHYSICAL EXAMINATION: VITAL SIGNS: This morning, blood pressure 127/81, heart rate is 70, respirations 16, O2 sats 96%. HEENT: Unremarkable. CHEST: Clear to auscultation. I hear no wheezes or crackles. There is reasonably good air exchange. ABDOMEN: Soft. No hepatosplenomegaly is noted. EXTREMITIES: Lower extremities, he has venous stasis changes and mild to moderate chronic lower extremity edema. IMPRESSION: Stable. PLAN: I spoke to the e-hospitalist at [place], Dr. Rodriguez, and we reviewed his BiPAP management. The nurses will continue to be in touch with him throughout the course of the next couple of days regarding his BiPAP management and the status of his respiratory failure. At this time, my impression is that he has improved and I expect him to remain stable over the weekend, and if that being the case, I would expect he would be ready for discharge early next week. JARETT/JESSE /[id number]
[2020-06-01] MEDS: cefTRIAXone 1 GM in Sodium Chloride 0.9% 50 ML IV SCH (13:55)
[2020-06-01] MEDS: Nystatin Topical Powder 15 GM Bottle TOP SCH ×3 (13:59→20:30)
[2020-06-01] MEDS: Azithromycin 500 MG in Sodium Chloride 0.9% 250 ML IV SCH (14:58)
[2020-06-01] MEDS: Warfarin 5 MG Tab PO SCH (18:06)
--- NOTE | 2020-06-01 21:02 | PCM.PN ---
- General Info Date of Service: 06/01/20 Subjective Update: Nursing called to clarify patient's most recent blood gas. Pt has been up ambulating in a walker today. ABG was taken on 4.5 L NC oxygen. Chart reviewed. According to nursing, patient is resting comfortably at this time. She will reach out to us if patient needs to be seen on camera. - Patient Data Vitals - Most Recent: Last Vital Signs Temp 36.7 C 06/01/20 17:00 Pulse 74 06/01/20 17:00 Resp 18 06/01/20 17:00 BP 121/60 06/01/20 17:00 Pulse Ox 98 06/01/20 17:00 Weight - Most Recent: 175.177 kg I&O - Last 24 Hours: Intake & Output 06/01/20 06/01/20 06/01/20 06:59 14:59 22:59 Intake Total 200 1500 Output Total 500 4 Balance -300 1496 Lab Results Last 24 Hours: Laboratory Results - last 24 hr 06/01/20 06/01/20 06/01/20 Range/Units 08:00 08:10 20:00 Whole Blood INR 1.8 (1.0-3.5) ABG pH 7.33 L 7.34 L (7.35-7.45) ABG pCO2 71 H* 72.6 H* (35-45) mmHg ABG pO2 65 L D 64 L (80-105) mmHg ABG HCO3 37.2 H 38.9 H (22-26) mmol/L ABG O2 Saturation 90 L 64 L (95-98) % ABG Base Excess 11 H 13 H (-2-2) O2 Delivery Device Bipap Bipap Jonathan Results Last 24 Hours: Microbiology 05/30/20 21:00 MRSA Surveillance Culture - Final Nares, Left NO MRSA ISOLATED Med Orders - Current: Current Medications Acetaminophen (Tylenol Extra Strength) 500 mg PO Q6H PRN PRN Reason: Pain Last Admin: 05/31/20 21:32 Dose: 500 mg Documented by: Albuterol/Ipratropium (Duoneb 3.0-0.5 Mg/3 Ml) 3 ml NEB Q2H PRN PRN Reason: Dyspnea Last Admin: 05/31/20 17:55 Dose: 3 ml Documented by: Azithromycin 500 mg/ Sodium (Chloride) 250 mls @ 250 mls/hr IV Q24H [facility] Last Admin: 06/01/20 14:58 Dose: 250 mls/hr Documented by: Ceftriaxone Sodium 1 gm/ (Sodium Chloride) 50 mls @ 200 mls/hr IV Q24H [facility] Last Admin: 06/01/20 13:55 Dose: 200 mls/hr Documented by: Melatonin (Melatonin) 3 mg PO BEDTIME PRN PRN Reason: Sleep Last Admin: 05/31/20 21:32 Dose: 3 mg Documented by: Nystatin (Nystop) 1 gm TOP BID [facility] Last Admin: 06/01/20 15:02 Dose: 1 gm Documented by: Warfarin Sodium (Coumadin) 5 mg PO DAILY@1800 [facility] Last Admin: 06/01/20 18:06 Dose: 5 mg Documented by: Discontinued Medications Albuterol/Ipratropium (Duoneb 3.0-0.5 Mg/3 Ml) Confirm Administered Dose 3 ml .ROUTE .STK-MED ONE Stop: 05/30/20 15:34 Last Admin: 05/30/20 22:12 Dose: Not Given Documented by: Albuterol/Ipratropium (Duoneb 3.0-0.5 Mg/3 Ml) 3 ml NEB Q4H PRN PRN Reason: Dyspnea Last Admin: 05/31/20 12:37 Dose: 3 ml Documented by: Albuterol/Ipratropium (Duoneb 3.0-0.5 Mg/3 Ml) 3 ml NEB ONETIME STA Stop: 05/31/20 13:20 Last Admin: 05/31/20 16:45 Dose: Not Given Documented by: Enoxaparin Sodium (Lovenox) 150 mg SUBCUT ONETIME ONE Stop: 05/31/20 18:16 Last Admin: 05/31/20 19:46 Dose: 150 mg Documented by: Furosemide (Lasix) 40 mg IVPUSH NOW STA Stop: 05/30/20 16:53 Last Admin: 05/30/20 18:13 Dose: 40 mg Documented by: Furosemide (Lasix) Confirm Administered Dose 40 mg .ROUTE .STK-MED ONE Stop: 05/30/20 18:21 Last Admin: 05/30/20 22:12 Dose: Not Given Documented by: Methylprednisolone Sodium Succinate (Solu-Medrol) 125 mg IV ONETIME ONE Stop: 05/31/20 12:41 Last Admin: 05/31/20 12:40 Dose: 125 mg Documented by: Warfarin Sodium (Coumadin) 6 mg PO DAILY@1800 [facility] Last Admin: 05/30/20 23:11 Dose: Not Given Documented by: Sepsis Event Note - Evaluation Sepsis Screening Result: No Definite Risk - Focused Exam Vital Signs: Vital Signs Temp Pulse Resp BP Pulse Ox 06/01/20 17:00 36.7 C 74 18 121/60 98 06/01/20 13:00 36.9 C 69 18 117/65 98 06/01/20 09:00 36.0 C L 18 111/57 L 96 - Problem List & Annotations (1) Acute and chronic respiratory failure ([id number]) SNOMED Code(s): 91704832 Code(s): J96.20 - ACUTE AND CHR RESP FAILURE, UNSP W HYPOXIA OR HYPERCAPNIA Status: Acute Priority: High Current Visit: Yes - Problem List Review Problem List Initiated/Reviewed/Updated: Yes
[2020-06-02] MEDS: Acetaminophen 500 MG Tab PO PRN (10:20)
[2020-06-02] MEDS: Albuterol/Ipratropium 3.0-0.5 MG/3 ML Neb Soln NEB PRN (10:20)
[2020-06-02] MEDS: Nystatin Topical Powder 15 GM Bottle TOP SCH ×2 (10:21→22:05)
--- NOTE | 2020-06-02 12:45 | PN ---
DATE OF VISIT: 06/02/2020 Mr. Coronado continues to feel reasonably good. However, he states he feels he has more congestion and heaviness in his chest and feels that he could benefit from another DuoNeb treatment. He only has received 1 yesterday morning but none since then, so we will go ahead and give him 3 DuoNeb treatments throughout the day today and see how he does. He remains afebrile. Otherwise, he has no complaints. His blood pressure is stable, 140/68, heart rate is 88. His O2 saturations remain quite good. His ABGs most recently show that he is retaining more CO2, but that is not surprising because his pO2 is elevated at 153, so he needs that hypoxic drive so that he can blow off that excess CO2. The appropriate adjustments were made under the guidance of the hospitalist at [facility]. He is on his BiPAP device most of the time. On physical examination, his chest is reasonably clear. IMPRESSION: Overall, stable. I suspect he walks around with a pCO2 in the range of the 60s and needs a hypoxic drive in the low 60s to maintain his own respiratory and acid-base equilibrium. PLAN: Continue present management. DICTATION ENDS HERE JARETT/JESSE /[id number] JAY
[2020-06-02] MEDS: cefTRIAXone 1 GM in Sodium Chloride 0.9% 50 ML IV SCH (13:53)
[2020-06-02] MEDS: Azithromycin 500 MG in Sodium Chloride 0.9% 250 ML IV SCH (13:54)
[2020-06-02] MEDS: Warfarin 5 MG Tab PO SCH (18:49)
[2020-06-03] MEDS: Melatonin 3 MG Tab PO PRN (01:14)
[2020-06-03] MEDS: Acetaminophen 500 MG Tab PO PRN (01:14)
--- NOTE | 2020-06-03 11:29 | PCM.DCSUM1 ---
Discharge Summary - Discharge Data Discharge Date: 06/03/20 Discharge Disposition: Home, Self-Care 01 Condition: Stable - Referral to Home Health Primary Care Physician: PCP None - Discharge Diagnosis/Problem(s) (1) Acute and chronic respiratory failure ([id number]) SNOMED Code(s): 14665065 ICD Code: J96.20 - ACUTE AND CHR RESP FAILURE, UNSP W HYPOXIA OR HYPERCAPNIA Status: Chronic Priority: High Current Visit: Yes (2) CHF, Congestive heart failure SNOMED Code(s): 62401689 ICD Code: I50.9 - HEART FAILURE, UNSPECIFIED Status: Chronic Priority: High Current Visit: Yes (3) Hypoxia SNOMED Code(s): 484297844 ICD Code: R09.02 - HYPOXEMIA Status: Resolved Priority: High Current Visit: Yes (4) Compensated respiratory acidosis SNOMED Code(s): 44362562 ICD Code: E87.2 - ACIDOSIS Status: Resolved Current Visit: Yes - Discharge Plan Prescriptions/Med Rec: Amoxicillin/Clavulanate K [Augmentin 875-125 MG] 1 tab PO BID #20 tablet Home Medications: Home Meds Multivits w-Min/Ferrous Gluc [Cerovite Liquid] 9 mg PO DAILY 10/04/19 [History] Albuterol/Ipratropium [DuoNeb 3.0-0.5 MG/3 ML] 3 ml IH Q6H PRN 05/08/20 [History] Warfarin Sodium [Jantoven] 15 mg PO DAILY 05/08/20 [History] Docusate Sodium [Colace] 100 mg PO DAILY PRN 05/31/20 [History] Nystatin 1 gm TOP BID 05/31/20 [History] predniSONE [Prednisone] 10 mg PO DAILY 05/31/20 [History] Acetaminophen [Tylenol Extra Strength] 500 mg PO Q6H PRN tablet 06/03/20 [Rx] Albuterol/Ipratropium [DuoNeb 3.0-0.5 MG/3 ML] 3 ml NEB Q2H PRN neb 06/03/20 [Rx] Amoxicillin/Clavulanate K [Augmentin 875-125 MG] 1 tab PO BID #20 tablet 06/03/20 [Rx] Azithromycin [Zithromax] 500 mg IV Q24H vial 06/03/20 [Rx] Melatonin 3 mg PO BEDTIME PRN tablet 06/03/20 [Rx] Nystatin [Nystop] 1 gm TOP BID bottle 06/03/20 [Rx] Warfarin [Coumadin] 5 mg PO DAILY@1800 tablet 06/03/20 [Rx] Forms: ED Department Discharge Referrals: PCP,None [Primary Care Provider] - - Discharge Summary/Plan Comment DC Time >30 min.: No Discharge Summary/Plan Comment: Counseled on follow up in clinic for routine follow up post hospital stay. Discussed antibiotics use and side effects and management. Discussed oxygen use and to maintain around 2 L and only up to 4 L gradually as discussed and to maintain CO2 dependent drive by maintaining oxygen saturation around 88-92. Patient is doing very well with 94-96% oxygen saturation at 2L. Discussed close monitoring and f/u. - Patient Data Vitals - Most Recent: Last Vital Signs Temp 36.6 C 06/03/20 08:00 Pulse 64 06/03/20 08:00 Resp 18 06/03/20 08:00 BP 136/71 06/03/20 08:00 Pulse Ox 94 L 06/03/20 08:00 Weight - Most Recent: 174.814 kg I&O - Last 24 hours: Intake & Output 06/02/20 06/03/20 06/03/20 22:59 06:59 14:59 Intake Total 1365 500 Output Total 6 Balance 1359 500 Lab Results - Last 24 hrs: Laboratory Results - last 24 hr 06/02/20 06/03/20 Range/Units 14:00 08:00 ABG pH 7.35 7.44 (7.35-7.45) ABG pCO2 69.5 H* 57.3 H* (35-45) mmHg ABG pO2 59 L* D 83 D (80-105) mmHg ABG HCO3 38.3 H 38.6 H (22-26) mmol/L ABG O2 Saturation 87 L 96 (95-98) % ABG Base Excess 13 H 14 H (-2-2) O2 Delivery Device Bipap Bipap Med Orders - Current: Current Medications Acetaminophen (Tylenol Extra Strength) 500 mg PO Q6H PRN PRN Reason: Pain Last Admin: 06/03/20 01:14 Dose: 500 mg Documented by: Albuterol/Ipratropium (Duoneb 3.0-0.5 Mg/3 Ml) 3 ml NEB Q2H PRN PRN Reason: Dyspnea Last Admin: 06/02/20 10:20 Dose: 3 ml Documented by: Azithromycin 500 mg/ Sodium (Chloride) 250 mls @ 250 mls/hr IV Q24H [facility] Last Admin: 06/02/20 13:54 Dose: 250 mls/hr Documented by: Ceftriaxone Sodium 1 gm/ (Sodium Chloride) 50 mls @ 200 mls/hr IV Q24H [facility] Last Admin: 06/02/20 13:53 Dose: 200 mls/hr Documented by: Melatonin (Melatonin) 3 mg PO BEDTIME PRN PRN Reason: Sleep Last Admin: 06/03/20 01:14 Dose: 3 mg Documented by: Nystatin (Nystop) 1 gm TOP BID [facility] Last Admin: 06/02/20 22:05 Dose: 1 applic Documented by: Warfarin Sodium (Coumadin) 5 mg PO DAILY@1800 [facility] Last Admin: 06/02/20 18:49 Dose: 5 mg Documented by: Discontinued Medications Albuterol/Ipratropium (Duoneb 3.0-0.5 Mg/3 Ml) Confirm Administered Dose 3 ml .ROUTE .STK-MED ONE Stop: 05/30/20 15:34 Last Admin: 05/30/20 22:12 Dose: Not Given Documented by: Albuterol/Ipratropium (Duoneb 3.0-0.5 Mg/3 Ml) 3 ml NEB Q4H PRN PRN Reason: Dyspnea Last Admin: 05/31/20 12:37 Dose: 3 ml Documented by: Albuterol/Ipratropium (Duoneb 3.0-0.5 Mg/3 Ml) 3 ml NEB ONETIME STA Stop: 05/31/20 13:20 Last Admin: 05/31/20 16:45 Dose: Not Given Documented by: Enoxaparin Sodium (Lovenox) 150 mg SUBCUT ONETIME ONE Stop: 05/31/20 18:16 Last Admin: 05/31/20 19:46 Dose: 150 mg Documented by: Furosemide (Lasix) 40 mg IVPUSH NOW STA Stop: 05/30/20 16:53 Last Admin: 05/30/20 18:13 Dose: 40 mg Documented by: Furosemide (Lasix) Confirm Administered Dose 40 mg .ROUTE .STK-MED ONE Stop: 05/30/20 18:21 Last Admin: 05/30/20 22:12 Dose: Not Given Documented by: Methylprednisolone Sodium Succinate (Solu-Medrol) 125 mg IV ONETIME ONE Stop: 05/31/20 12:41 Last Admin: 05/31/20 12:40 Dose: 125 mg Documented by: Warfarin Sodium (Coumadin) 6 mg PO DAILY@1800 [facility] Last Admin: 05/30/20 23:11 Dose: Not Given Documented by:
== END 2020-06-03 13:05 | disposition home or self-care (01) | DRG 189 ==
LOC: LB.ED 15:12 → UNDOADMIN 16:53 → LB.MS 16:53
PROVIDERS: ADMIT Nurse Practitioner; ATTEND Nurse Practitioner
PROC: 5A09457 Assistance with Respiratory Ventilation, 24-96 Consecutive Hours, Continuous Positive Airway Pressure (ICD-10-PCS; principal; 2020-05-30)
DX: J96.21 Acute and chronic respiratory failure with hypoxia (principal); E87.2 Acidosis; J44.1 Chronic obstructive pulmonary disease with (acute) exacerbation; R09.02 Hypoxemia; Z68.42 Body mass index [BMI] 45.0-49.9, adult; Z85.038 Personal history of other malignant neoplasm of large intestine; E66.9 Obesity, unspecified; I11.0 Hypertensive heart disease with heart failure; J96.22 Acute and chronic respiratory failure with hypercapnia; H54.7 Unspecified visual loss; I27.20 Pulmonary hypertension, unspecified; I50.9 Heart failure, unspecified; G47.33 Obstructive sleep apnea (adult) (pediatric); E66.01 Morbid (severe) obesity due to excess calories; Z86.711 Personal history of pulmonary embolism; Z79.52 Long term (current) use of systemic steroids; Z79.01 Long term (current) use of anticoagulants; Z79.899 Other long term (current) drug therapy; Z87.891 Personal history of nicotine dependence; Z20.828 Contact with and (suspected) exposure to other viral communicable diseases
CPT/HCPCS: 36415; 36600; 71045; 80053; 82803 ×2; 83880; 85025; 85610; 99285; A0425; A0429; 94660; 99222; 99231; 99232; 99238; A9270-GY; J0456; J0696; J1650; J1940; J2930; J7050; J7620-GY; U0002

== ENCOUNTER 2020-09-27 14:27 | Emergency (ER) | payer MEDICARE, BC | END 2020-09-27 17:10 | disposition home or self-care (01) | LOC: LB.ED 14:27 | DX: J02.9 Acute pharyngitis, unspecified (principal); Z20.828 Contact with and (suspected) exposure to other viral communicable diseases | CPT/HCPCS: 99282; U0002 ==

== ENCOUNTER 2021-04-15 10:59 | Inpatient (IN) | payer MEDICARE, BC ==
[2021-04-15] MEDS ORDERED: Sodium Chloride 0.9% 10 ML Syringe FLUSH PRN (11:10)
[2021-04-15] MEDS ORDERED: Albuterol 0.083% 2.5 MG/3 ML Neb Soln NEB ONE (11:11)
--- NOTE | 2021-04-15 11:13 | EDM.PDOC ---
ED HPI GENERAL MEDICAL PROBLEM - General Chief Complaint: Respiratory Problem Stated Complaint: SHORTNESS OF BREATH Time Seen by Provider: 04/15/21 11:12 Source of Information: Reports: EMS History Limitations: Reports: No Limitations - History of Present Illness INITIAL COMMENTS - FREE TEXT/NARRATIVE: patient was brought to the ER by EMS - due to SOB. h/o CHF, and respiratory failure in the past - O2 dependent 2-3 lit NC. Also uses nebs treatment and BiPAP at night. Reports that he has been felling SOB for the last 3-4 days - getting worse. Also edema has been getting worse. On Coumadin for a h/o PE in the past. When EMS arrived to the scene - his O2 sat was 68%. - Related Data Allergies Allergy/AdvReac Type Severity Reaction Status Date / Time No Known Allergies Allergy Verified 04/15/21 11:57 Home Meds: Home Meds Multivits w-Min/Ferrous Gluc [Cerovite Liquid] 9 mg PO DAILY 10/04/19 [History] Warfarin Sodium [Jantoven] 10 mg PO DAILY 05/08/20 [History] Acetaminophen [Tylenol Extra Strength] 500 mg PO Q6H PRN tablet 06/03/20 [Rx] Albuterol/Ipratropium [DuoNeb 3.0-0.5 MG/3 ML] 3 ml NEB Q2H PRN neb 06/03/20 [Rx] Melatonin 3 mg PO BEDTIME PRN tablet 06/03/20 [Rx] Nystatin [Nystop] 1 gm TOP BID bottle 06/03/20 [Rx] Arformoterol [Brovana] 15 mcg NEB BID 04/15/21 [History] Furosemide 40 mg PO BID 04/15/21 [History] Glucosamine HCl [Glucosamine] 1,500 mg PO DAILY 04/15/21 [History] Metoprolol Succinate 25 mg PO DAILY 04/15/21 [History] lisinopriL [Lisinopril] 5 mg PO DAILY 04/15/21 [History] Past Medical History HEENT History: Reports: Impaired Vision Cardiovascular History: Reports: Hypertension, Pulmonary Hypertension Respiratory History: Reports: SOB Other Respiratory History: Pt has continuous oxygen at 4L/min. Gastrointestinal History: Reports: Other (See Below) Other Gastrointestinal History: recent surgery for colon cancer Musculoskeletal History: Reports: Other (See Below) Other Musculoskeletal History: Walks with a walker, very obese, knee pain Endocrine/Metabolic History: Reports: Obesity/BMI 30+ Dermatologic History: Reports: Cellulitis, Eczema, Venous Stasis Dermatitis, Other (See Below) Other Dermatologic History: yeast in abdominal folds, excoriated scrotum - Past Surgical History Dermatological Surgical History: Reports: None Social & Family History - Family History Family Medical History: No Pertinent Family History - Caffeine Use Caffeine Use: Reports: None ED ROS GENERAL - Review of Systems Review Of Systems: See Below Constitutional: Reports: Malaise, Fatigue HEENT: Reports: No Symptoms Respiratory: Reports: Shortness of Breath, Wheezing, Cough Cardiovascular: Reports: Dyspnea on Exertion, Edema, Orthopnea GI/Abdominal: Reports: No Symptoms Musculoskeletal: Reports: No Symptoms Skin: Reports: No Symptoms Neurological: Reports: No Symptoms Psychiatric: Reports: No Symptoms Immunologic: Reports: No Symptoms ED EXAM, GENERAL - Physical Exam Exam: See Below Exam Limited By: No Limitations General Appearance: Alert, Lethargic, Mild Distress Eye Exam: Bilateral Eye: EOMI, PERRL Respiratory/Chest: Respiratory Distress, Decreased Breath Sounds, Rhonchi, Prolonged Expiration Cardiovascular: Regular Rate, Rhythm, Other (edema pitting +3) GI/Abdominal: Normal Bowel Sounds, Soft, Non-Tender Back Exam: Normal Inspection Extremities: Normal Inspection, Pedal Edema Neurological: Alert, Oriented, Normal Cognition #1 Interpretation EKG Date: 04/15/21 Rhythm: NSR [place]: Normal P-Wave: Present QRS: Normal ST-T: Normal QT: Normal Course - Vital Signs Last Recorded V/S: Last Vital Signs Temp 36.5 C 04/15/21 15:32 Pulse 78 04/15/21 16:10 Resp 18 04/15/21 16:10 BP 112/53 L 04/15/21 16:15 Pulse Ox 9 L 04/15/21 16:15 - Orders/Labs/Meds Orders: Active Orders 24 hr Category Date Time Status EKG Documentation Completion [RC] ASDIRECTED Care 04/15/21 11:11 Active RT Aerosol Therapy [RC] ASDIRECTED Care 04/15/21 11:11 Active Chest 1V Frontal [CR] Stat Exams 04/15/21 11:10 Taken Sodium Chloride 0.9% [Saline Flush] Med 04/15/21 11:10 Active 10 ml FLUSH ASDIRECTED PRN Saline Lock Insert [OM.PC] Routine Oth 04/15/21 11:10 Ordered Medication Orders Sodium Chloride (Sodium Chloride 0.9% 10 Ml Syringe) 10 ml FLUSH ASDIRECTED PRN PRN Reason: Keep Vein Open Labs: Laboratory Tests 04/15/21 04/15/21 04/15/21 Range/Units 11:10 11:19 11:19 WBC 8.3 D (4.0-11.0) K/uL RBC 5.04 (4.50-6.50) M/uL Hgb 14.2 (13.0-18.0) g/dL Hct 47.9 (40.0-54.0) % MCV 95 (76-96) fL MCH 28.2 (27.0-32.0) pg MCHC 29.6 L (31.0-35.0) g/dL RDW 17.3 H (11.0-16.0) % Plt Count 184 (150-400) K/uL MPV 9.4 (6.0-10.0) fL PT 28.4 H D (9.0-11.5) sec INR 2.8 D (1.0-3.5) Sodium 145 (136-145) mmol/L Potassium 4.1 (3.5-5.1) mmol/L Chloride 100 (98-107) mmol/L Carbon Dioxide 42.6 H (21.0-32.0) mmol/L Anion Gap 6.5 (5.0-15.0) mmol/L BUN 26 D (8-26) mg/dL Creatinine 1.06 (0.70-1.30) mg/dL Est Cr Clr Drug Dosing TNP Estimated GFR (MDRD) > 60 (>60) MLS/MIN BUN/Creatinine Ratio 24.5 (6-25) Glucose 109 H D (74-100) mg/dL Calcium 9.0 (8.5-10.1) mg/dL Troponin I < 0.017 (0.000-0.060) ng/mL B-Natriuretic Peptide 531 H D (0-125) pg/mL SARS-CoV-2 RNA (DAI) (NEGATIVE) 04/15/21 Range/Units 11:44 WBC (4.0-11.0) K/uL RBC (4.50-6.50) M/uL Hgb (13.0-18.0) g/dL Hct (40.0-54.0) % MCV (76-96) fL MCH (27.0-32.0) pg MCHC (31.0-35.0) g/dL RDW (11.0-16.0) % Plt Count (150-400) K/uL MPV (6.0-10.0) fL PT (9.0-11.5) sec INR (1.0-3.5) Sodium (136-145) mmol/L Potassium (3.5-5.1) mmol/L Chloride (98-107) mmol/L Carbon Dioxide (21.0-32.0) mmol/L Anion Gap (5.0-15.0) mmol/L BUN (8-26) mg/dL Creatinine (0.70-1.30) mg/dL Est Cr Clr Drug Dosing Estimated GFR (MDRD) (>60) MLS/MIN BUN/Creatinine Ratio (6-25) Glucose (74-100) mg/dL Calcium (8.5-10.1) mg/dL Troponin I (0.000-0.060) ng/mL B-Natriuretic Peptide (0-125) pg/mL SARS-CoV-2 RNA (DAI) Negative (NEGATIVE) Meds: Medications Generic Name Dose Route Start Last Admin Trade Name Frejimy PRN Reason Stop Dose Admin Sodium Chloride 10 ml 04/15/21 11:10 Sodium Chloride 0.9% 10 Ml Syringe FLUSH ASDIRECTED PRN Keep Vein Open Discontinued Medications Generic Name Dose Route Start Last Admin Trade Name Frejimy PRN Reason Stop Dose Admin Acetaminophen 650 mg 04/15/21 12:15 04/15/21 12:17 Acetaminophen 325 Mg Tab PO 04/15/21 12:16 650 mg NOW ONE Administration Acetaminophen Confirm 04/15/21 12:27 04/15/21 12:28 Acetaminophen 325 Mg Tab Administered 04/15/21 12:28 Not Given Dose 650 mg .ROUTE .STK-MED ONE Albuterol 2.5 mg 04/15/21 11:11 04/15/21 11:12 Albuterol 0.083% 2.5 Mg/3 Ml Neb Soln NEB 04/15/21 11:12 2.5 mg ONETIME ONE Administration Furosemide 20 mg 04/15/21 11:37 04/15/21 11:47 Furosemide 40 Mg/4 Ml Vial IVPUSH 04/15/21 11:38 20 mg NOW ONE Administration Furosemide Confirm 04/15/21 11:57 04/15/21 12:17 Furosemide 40 Mg/4 Ml Vial Administered 04/15/21 11:58 Not Given Dose 40 mg .ROUTE .STK-MED ONE Furosemide 20 mg 04/15/21 12:17 04/15/21 12:19 Furosemide 40 Mg/4 Ml Vial IVPUSH 04/15/21 12:18 20 mg NOW ONE Administration - Re-Assessments/Exams Free Text/Narrative Re-Assessment/Exam: was connected to a monitor initial O2 sat was in mid 70's. Neb treatment was given - O2 up to high 80's. labs were ordered - CBC, BMP, Trop and BNP. INR. CXR - b/l perihilar congestion, cardiomegaly with possible pulmonary edema. EKG - NSR - No ischemic changes 04/15/21 16:20 labs showed significant elevation in BNP, but normal Trop IV lasix 40mg was given - large amount of UOP > 1lit multiple nebs were given - reports significant improvement in breathing status his home bipap was applied - Sat mid 90'd. will admit for further diuresis and to work on his respiratory status Departure - Departure Time of Disposition: 16:22 Disposition: Admitted As Inpatient 67 Condition: Good Clinical Impression: CHF, Congestive heart failure Acute and chronic respiratory failure ([id number]) Qualifiers: Respiratory failure complication: hypoxia Qualified Code(s): J96.21 - Acute and chronic respiratory failure with hypoxia - Discharge Information *PRESCRIPTION DRUG MONITORING PROGRAM REVIEWED*: Not Applicable *COPY OF PRESCRIPTION DRUG MONITORING REPORT IN PATIENT CLEO: Not Applicable Referrals: PCP,None [Primary Care Provider] - Forms: ED Department Discharge Sepsis Event Note (ED) - Focused Exam Vital Signs: Vital Signs Temp Pulse Resp BP Pulse Ox 04/15/21 16:15 112/53 L 9 L 04/15/21 16:10 78 18 94 L 04/15/21 15:32 36.5 C 75 20 95 04/15/21 15:21 19 115/61 83 L 04/15/21 14:46 82 18 115/61 83 L 04/15/21 13:10 80 20 90 L 04/15/21 12:11 36.4 C 78 22 H 110/53 L 90 L 04/15/21 11:44 79 86 L 04/15/21 11:20 36.4 C 88 24 H 133/59 L 88 L - Problem List & Annotations (1) Acute and chronic respiratory failure ([id number]) SNOMED Code(s): 14186650 Code(s): J96.20 - ACUTE AND CHR RESP FAILURE, UNSP W HYPOXIA OR HYPERCAPNIA Status: Chronic Priority: High Current Visit: Yes Qualifiers: Respiratory failure complication: hypoxia Qualified Code(s): J96.21 - Acute and chronic respiratory failure with hypoxia (2) CHF, Congestive heart failure SNOMED Code(s): 68429337 Code(s): I50.9 - HEART FAILURE, UNSPECIFIED Status: Chronic Priority: High Current Visit: Yes (3) Hypoxia SNOMED Code(s): 380201660 Code(s): R09.02 - HYPOXEMIA Status: Resolved Priority: High Current Visit: No - Problem List Review Problem List Initiated/Reviewed/Updated: Yes - My Orders Last 24 Hours: My Active Orders 04/15/21 11:10 Chest 1V Frontal [CR] Stat Sodium Chloride 0.9% [Saline Flush] 10 ml FLUSH ASDIRECTED PRN Saline Lock Insert [OM.PC] Routine 04/15/21 11:11 EKG Documentation Completion [RC] ASDIRECTED RT Aerosol Therapy [RC] ASDIRECTED - Assessment/Plan Last 24 Hours: My Active Orders 04/15/21 11:10 Chest 1V Frontal [CR] Stat Sodium Chloride 0.9% [Saline Flush] 10 ml FLUSH ASDIRECTED PRN Saline Lock Insert [OM.PC] Routine 04/15/21 11:11 EKG Documentation Completion [RC] ASDIRECTED RT Aerosol Therapy [RC] ASDIRECTED Plan: - admission to status for further respiratory workup - bipap at home settings - continue diuresis - daily labs
[2021-04-15] MEDS ORDERED: Furosemide 40 MG/4 ML VIAL IVPUSH ONE ×2 (11:37→12:17)
[2021-04-15] MEDS ORDERED: Furosemide 40 MG/4 ML VIAL ONE (11:57)
[2021-04-15] MEDS ORDERED: Acetaminophen 325 MG Tab PO ONE (12:15)
[2021-04-15] MEDS ORDERED: Acetaminophen 325 MG Tab ONE (12:27)
[2021-04-15] MEDS ORDERED: Morphine 4 MG/ML VIAL IVPUSH ONE (16:24)
[2021-04-15] MEDS ORDERED: Albuterol/Ipratropium 3.0-0.5 MG/3 ML Neb Soln NEB PRN (16:35)
[2021-04-15] MEDS: Melatonin 3 MG Tab PO PRN (18:55)
[2021-04-15] MEDS: Furosemide 40 MG Tab PO SCH (18:56)
[2021-04-15] MEDS: Acetaminophen 500 MG Tab PO PRN (18:57)
[2021-04-15] MEDS: Warfarin 5 MG Tab PO SCH (18:58)
[2021-04-15] MEDS: Lisinopril 5 MG Tab PO SCH (19:41)
[2021-04-15] MEDS: Metoprolol Succinate 25 MG Tab.ER PO SCH (19:41)
[2021-04-15] MEDS: Nystatin Topical Powder 15 GM Bottle TOP SCH (19:42)
[2021-04-16] MEDS: Arformoterol 15 MCG/2 ML Neb Soln NEB SCH ×3 (07:53→20:00)
[2021-04-16] MEDS: Nystatin Topical Powder 15 GM Bottle TOP SCH ×2 (07:54→20:00)
[2021-04-16] MEDS: Lisinopril 5 MG Tab PO SCH (07:58)
[2021-04-16] MEDS: Furosemide 40 MG Tab PO SCH ×2 (07:58→16:04)
[2021-04-16] MEDS: Metoprolol Succinate 25 MG Tab.ER PO SCH (07:59)
--- NOTE | 2021-04-16 08:53 | CR ---
Date of Service: 04/15/21 Clinical Data: SOB AP PORTABLE CHEST: Comparison is made to a prior exam dated 05/30/20. The patient has taken a poor inspiration. The heart size is normal. The aorta is ectatic. There is prominence of the proximal pulmonary arteries consistent with pulmonary hypertension. There is a chronic linear density in the left lung base laterally consistent with linear atelectasis or fibrosis. The lungs are otherwise clear. The exam is otherwise unchanged from the prior. [id number] [facility]
--- NOTE | 2021-04-16 12:20 | PCM.PN ---
- General Info Date of Service: 04/16/21 Admission Dx/Problem (Free Text): pt admit yesterday for CHF exacerbation, hypoxic respiratory failure, PAH hx. lasix BID, no recent Echocardiogram. overnight O2 sats dropping to 80% with home-PAP. pt activity limited since initial admit. pt states he is feeling improved "but still tired, I was sleeping a lot at home" Functional Status: Reports: Pain Controlled, Tolerating Diet - Review of Systems General: Reports: Malaise HEENT: Reports: No Symptoms Pulmonary: Reports: No Symptoms Cardiovascular: Reports: Dyspnea on Exertion, PND, Edema Gastrointestinal: Reports: No Symptoms Genitourinary: Reports: No Symptoms Musculoskeletal: Reports: No Symptoms Skin: Reports: No Symptoms Neurological: Reports: No Symptoms Psychiatric: Reports: No Symptoms - Patient Data Vitals - Most Recent: Last Vital Signs Temp 98 F 04/16/21 08:00 Pulse 67 04/16/21 08:00 Resp 18 04/16/21 08:00 BP 113/57 L 04/16/21 08:00 Pulse Ox 93 L 04/16/21 08:00 Weight - Most Recent: 421 lb I&O - Last 24 Hours: Intake & Output 04/15/21 04/16/21 04/16/21 22:59 06:59 14:59 Intake Total 280 Balance 280 Lab Results Last 24 Hours: Laboratory Results - last 24 hr 04/15/21 Range/Units 11:44 SARS-CoV-2 RNA (DAI) Negative (NEGATIVE) Med Orders - Current: Current Medications Acetaminophen (Acetaminophen 500 Mg Tab) 500 mg PO Q6H PRN PRN Reason: Pain Last Admin: 04/15/21 18:57 Dose: 500 mg Documented by: Albuterol/Ipratropium (Albuterol/Ipratropium 3.0-0.5 Mg/3 Ml Neb Soln) 3 ml NEB Q2H PRN PRN Reason: Dyspnea Albuterol/Ipratropium (Albuterol/Ipratropium 3.0-0.5 Mg/3 Ml Neb Soln) 3 ml NEB Q8H PEPITO Arformoterol Tartrate (Arformoterol 15 Mcg/2 Ml Neb Soln) 15 mcg NEB BID PEPITO Last Admin: 04/16/21 07:59 Dose: Not Given Documented by: Furosemide (Furosemide 40 Mg Tab) 40 mg PO BIDDIURETIC PEPITO Last Admin: 04/16/21 07:58 Dose: 40 mg Documented by: Lisinopril (Lisinopril 5 Mg Tab) 5 mg PO DAILY [facility] Last Admin: 04/16/21 07:58 Dose: 5 mg Documented by: Melatonin (Melatonin 3 Mg Tab) 3 mg PO BEDTIME PRN PRN Reason: Sleep Last Admin: 04/15/21 18:55 Dose: 3 mg Documented by: Metoprolol Succinate (Metoprolol Succinate 25 Mg Tab.Er) 25 mg PO DAILY [facility] Last Admin: 04/16/21 07:59 Dose: 25 mg Documented by: Nystatin (Nystatin Topical Powder 15 Gm Bottle) 0 gm TOP BID [facility] Last Admin: 04/16/21 07:54 Dose: 1 applic Documented by: Sodium Chloride (Sodium Chloride 0.9% 10 Ml Syringe) 10 ml FLUSH ASDIRECTED PRN PRN Reason: Keep Vein Open Warfarin Sodium (Warfarin 5 Mg Tab) 10 mg PO DAILY@1800 [facility] Last Admin: 04/15/21 18:58 Dose: 10 mg Documented by: Discontinued Medications Acetaminophen (Acetaminophen 325 Mg Tab) 650 mg PO NOW ONE Stop: 04/15/21 12:16 Last Admin: 04/15/21 12:17 Dose: 650 mg Documented by: Acetaminophen (Acetaminophen 325 Mg Tab) Confirm Administered Dose 650 mg .ROUTE .STK-MED ONE Stop: 04/15/21 12:28 Last Admin: 04/15/21 12:28 Dose: Not Given Documented by: Albuterol (Albuterol 0.083% 2.5 Mg/3 Ml Neb Soln) 2.5 mg NEB ONETIME ONE Stop: 04/15/21 11:12 Last Admin: 04/15/21 11:12 Dose: 2.5 mg Documented by: Furosemide (Furosemide 40 Mg/4 Ml Vial) 20 mg IVPUSH NOW ONE Stop: 04/15/21 11:38 Last Admin: 04/15/21 11:47 Dose: 20 mg Documented by: Furosemide (Furosemide 40 Mg/4 Ml Vial) Confirm Administered Dose 40 mg .ROUTE .STK-MED ONE Stop: 04/15/21 11:58 Last Admin: 04/15/21 12:17 Dose: Not Given Documented by: Furosemide (Furosemide 40 Mg/4 Ml Vial) 20 mg IVPUSH NOW ONE Stop: 04/15/21 12:18 Last Admin: 04/15/21 12:19 Dose: 20 mg Documented by: Morphine Sulfate (Morphine 4 Mg/Ml Vial) 4 mg IVPUSH ONETIME ONE Stop: 04/15/21 16:25 Last Admin: 04/15/21 18:54 Dose: Not Given Documented by: - Exam Quality Assessment: Supplemental Oxygen General: Alert, Oriented, Cooperative, No Acute Distress HEENT: Pupils Equal, Pupils Reactive, EOMI, Mucous Membr. Moist/[place] Lungs: Crackles (bilateral lower lobes) Cardiovascular: Regular Rate, Regular Rhythm GI/Abdominal Exam: Normal Bowel Sounds, Soft, Non-Tender, Other (morbid obesity) Extremities: Pedal Edema (+3 bilateral) Peripheral Pulses: 1+: Posterior Tibial (L), Posterior Tibial (R), 2+: Radial (L), Radial (R) Skin: Warm, Dry, Intact Neurological: No New Focal Deficit, Normal Speech, Strength Equal Bilateral Psy/Mental Status: Alert, Normal Affect, Normal Mood - Patient Data Lab Results Last 24 hrs: Laboratory Results - last 24 hr 04/15/21 Range/Units 11:44 SARS-CoV-2 RNA (DAI) Negative (NEGATIVE) Result Diagrams: 04/15/21 11:19 04/15/21 11:19 Sepsis Event Note - Evaluation Sepsis Screening Result: No Definite Risk - Focused Exam Vital Signs: Vital Signs Temp Pulse Pulse Resp BP BP Pulse Ox 04/16/21 08:00 98 F 67 18 113/57 L 93 L 04/16/21 07:59 67 113/57 L 04/16/21 07:58 113/57 L 04/16/21 04:00 98.2 F 65 18 106/53 L 92 L 04/16/21 01:38 98.3 F 67 18 108/63 Heart Sounds: Distant, Murmur, Systolic Capillary Refill, Detail: Less than/Equal to (</=) 2 Seconds Pulse Description: 1+ [place]ready Peripheral Pulse Location: Posterior Tibial Skin Exam (Focused Sepsis): Normal Turgor Date Exam was Performed: 04/16/21 Time Exam was Performed: 12:21 - Problem List & Annotations (1) Acute and chronic respiratory failure ([id number]) SNOMED Code(s): 37340388 Code(s): J96.20 - ACUTE AND CHR RESP FAILURE, UNSP W HYPOXIA OR HYPERCAPNIA Status: Chronic Priority: High Current Visit: Yes Qualifiers: Respiratory failure complication: hypoxia Qualified Code(s): J96.21 - Acute and chronic respiratory failure with hypoxia (2) CHF, Congestive heart failure SNOMED Code(s): 75866790 Code(s): I50.9 - HEART FAILURE, UNSPECIFIED Status: Chronic Priority: High Current Visit: Yes (3) Compensated respiratory acidosis SNOMED Code(s): 33591884 Code(s): E87.2 - ACIDOSIS Status: Resolved Current Visit: No (4) Hypoxia SNOMED Code(s): 145473410 Code(s): R09.02 - HYPOXEMIA Status: Resolved Priority: High Current Visit: Yes - Problem List Review Problem List Initiated/Reviewed/Updated: Yes - My Orders Last 24 Hours: My Active Orders 04/16/21 07:17 CULTURE MRSA SURVEY [RM] Routine 04/16/21 11:01 B-TYPE NATRIURETIC PEPTIDE,BNP [CHEM] Stat COMPREHENSIVE METABOLIC PN,CMP [CHEM] Stat 04/16/21 12:11 Up to Chair [RC] Q4HR OT Evaluation and Treatment [CONS] Routine PT Evaluation and Treatment [CONS] Routine Pulse Oximetry Continuous Monitoring [OM.PC] Routine 04/16/21 12:12 Overnight Pulse Oximetry [RC] Click to Edit RT Aerosol Therapy [RC] ASDIRECTED 04/16/21 12:15 Albuterol/Ipratropium [DuoNeb 3.0-0.5 MG/3 ML] 3 ml NEB Q8H - Assessment Assessment:: start continuous o2 monitoring, schedule duonebs, PT and OT eval for discharge readiness and planning. up to chair at least 3x per day for 1hr a time. pt in poor physical conditioning and does not appear motivated for activity. perfusion appears good with sats 86-89% with CPAP and 86% on 2lpm during conversation. will order heart echo for next week and clinic followup after for post ED recheck and echo review. plan to continue IV diuresis and increase activity, ADLs check via therapy and discharge on or 18 April depending on improvements.
[2021-04-16] MEDS: Albuterol/Ipratropium 3.0-0.5 MG/3 ML Neb Soln NEB SCH ×2 (13:16→20:00)
[2021-04-16] MEDS: Warfarin 5 MG Tab PO SCH (17:58)
[2021-04-17] MEDS: Albuterol/Ipratropium 3.0-0.5 MG/3 ML Neb Soln NEB SCH ×3 (06:30→20:15)
[2021-04-17] MEDS: Furosemide 40 MG Tab PO SCH ×2 (07:59→16:36)
[2021-04-17] MEDS: Nystatin Topical Powder 15 GM Bottle TOP SCH ×2 (07:59→20:30)
[2021-04-17] MEDS: Lisinopril 5 MG Tab PO SCH (07:59)
[2021-04-17] MEDS: Metoprolol Succinate 25 MG Tab.ER PO SCH (08:00)
[2021-04-17] MEDS: Arformoterol 15 MCG/2 ML Neb Soln NEB SCH ×2 (09:33→20:15)
--- NOTE | 2021-04-17 13:10 | PCM.PN ---
- General Info Date of Service: 04/17/21 Admission Dx/Problem (Free Text): pt admit yesterday for CHF exacerbation, hypoxic respiratory failure, PAH hx. lasix BID, no recent Echocardiogram. overnight O2 sats dropping to 80%s with home-PAP. pt activity from yesterday getting up in chair for meals and extra. little activity with PT/OT yet. pt states he is feeling improved, awake, alert and oriented x4 making good convo. SaO2 96% on 6lpm when sitting up in chair, weaning O2 for sats approx 90%. discussed discharge potential for tomorrow and pt agreeable to this if he continues improvement to baseline. he states he may need O2 refill from home tank which is empty in closet. Functional Status: Reports: Pain Controlled - Review of Systems General: Reports: No Symptoms HEENT: Reports: No Symptoms Pulmonary: Reports: No Symptoms Cardiovascular: Reports: Dyspnea on Exertion, PND, Edema (lower extremity +3) Skin: Reports: No Symptoms Neurological: Reports: Tremors (intermittent, not associated with activity, stress or improved by anything) - Patient Data Vitals - Most Recent: Last Vital Signs Temp 97 F 04/17/21 11:36 Pulse 67 04/17/21 11:36 Resp 18 04/17/21 11:36 BP 96/44 L 04/17/21 11:36 Pulse Ox 89 L 04/17/21 12:20 Weight - Most Recent: 428 lb 9.258 oz I&O - Last 24 Hours: Intake & Output 04/16/21 04/17/21 04/17/21 22:59 06:59 14:59 Intake Total 1800 550 Output Total 800 850 Balance 1000 -300 Lab Results Last 24 Hours: Laboratory Results - last 24 hr 04/16/21 Range/Units 14:00 Sodium 146 H (136-145) mmol/L Potassium 4.3 (3.5-5.1) mmol/L Chloride 102 (98-107) mmol/L Carbon Dioxide 44.9 H (21.0-32.0) mmol/L Anion Gap 3.4 L (5.0-15.0) mmol/L BUN 27 H (8-26) mg/dL Creatinine 1.17 (0.70-1.30) mg/dL Est Cr Clr Drug Dosing 66.39 mL/min Estimated GFR (MDRD) > 60 (>60) MLS/MIN BUN/Creatinine Ratio 23.1 (6-25) Glucose 142 H D (74-100) mg/dL Calcium 8.7 (8.5-10.1) mg/dL Total Bilirubin 0.7 (0.0-1.0) mg/dL AST 19 (15-37) U/L ALT 27 (12-78) U/L Alkaline Phosphatase 47 (46-116) U/L B-Natriuretic Peptide 322 H D (0-125) pg/mL Total Protein 7.6 (6.4-8.2) g/dL Albumin 3.1 L (3.4-5.0) g/dL Globulin 4.5 H (2.2-4.2) g/dL Albumin/Globulin Ratio 0.7 L (0.8-2.0) Jonathan Results Last 24 Hours: Microbiology 04/16/21 07:17 MRSA Surveillance Culture - Final Nares, Unspecified NO MRSA ISOLATED Med Orders - Current: Current Medications Acetaminophen (Acetaminophen 500 Mg Tab) 500 mg PO Q6H PRN PRN Reason: Pain Last Admin: 04/15/21 18:57 Dose: 500 mg Documented by: Albuterol/Ipratropium (Albuterol/Ipratropium 3.0-0.5 Mg/3 Ml Neb Soln) 3 ml NEB Q2H PRN PRN Reason: Dyspnea Last Admin: 04/16/21 16:04 Dose: 3 ml Documented by: Albuterol/Ipratropium (Albuterol/Ipratropium 3.0-0.5 Mg/3 Ml Neb Soln) 3 ml NEB Q8H [facility] Last Admin: 04/17/21 11:39 Dose: 3 ml Documented by: Arformoterol Tartrate (Arformoterol 15 Mcg/2 Ml Neb Soln) 15 mcg NEB BID [facility] Last Admin: 04/17/21 09:33 Dose: 15 mcg Documented by: Furosemide (Furosemide 40 Mg Tab) 40 mg PO BIDDIURETIC [facility] Last Admin: 04/17/21 07:59 Dose: 40 mg Documented by: Lisinopril (Lisinopril 5 Mg Tab) 5 mg PO DAILY [facility] Last Admin: 04/17/21 07:59 Dose: 5 mg Documented by: Melatonin (Melatonin 3 Mg Tab) 3 mg PO BEDTIME PRN PRN Reason: Sleep Last Admin: 04/15/21 18:55 Dose: 3 mg Documented by: Metoprolol Succinate (Metoprolol Succinate 25 Mg Tab.Er) 25 mg PO DAILY [facility] Last Admin: 04/17/21 08:00 Dose: 25 mg Documented by: Nystatin (Nystatin Topical Powder 15 Gm Bottle) 0 gm TOP BID [facility] Last Admin: 04/17/21 07:59 Dose: 1 applic Documented by: Sodium Chloride (Sodium Chloride 0.9% 10 Ml Syringe) 10 ml FLUSH ASDIRECTED PRN PRN Reason: Keep Vein Open Last Admin: 04/17/21 07:58 Dose: 10 ml Documented by: Warfarin Sodium (Warfarin 5 Mg Tab) 10 mg PO DAILY@1800 [facility] Last Admin: 04/16/21 17:58 Dose: 10 mg Documented by: Discontinued Medications Acetaminophen (Acetaminophen 325 Mg Tab) 650 mg PO NOW ONE Stop: 04/15/21 12:16 Last Admin: 04/15/21 12:17 Dose: 650 mg Documented by: Acetaminophen (Acetaminophen 325 Mg Tab) Confirm Administered Dose 650 mg .ROUTE .STK-MED ONE Stop: 04/15/21 12:28 Last Admin: 04/15/21 12:28 Dose: Not Given Documented by: Albuterol (Albuterol 0.083% 2.5 Mg/3 Ml Neb Soln) 2.5 mg NEB ONETIME ONE Stop: 04/15/21 11:12 Last Admin: 04/15/21 11:12 Dose: 2.5 mg Documented by: Furosemide (Furosemide 40 Mg/4 Ml Vial) 20 mg IVPUSH NOW ONE Stop: 04/15/21 11:38 Last Admin: 04/15/21 11:47 Dose: 20 mg Documented by: Furosemide (Furosemide 40 Mg/4 Ml Vial) Confirm Administered Dose 40 mg .ROUTE .STK-MED ONE Stop: 04/15/21 11:58 Last Admin: 04/15/21 12:17 Dose: Not Given Documented by: Furosemide (Furosemide 40 Mg/4 Ml Vial) 20 mg IVPUSH NOW ONE Stop: 04/15/21 12:18 Last Admin: 04/15/21 12:19 Dose: 20 mg Documented by: Morphine Sulfate (Morphine 4 Mg/Ml Vial) 4 mg IVPUSH ONETIME ONE Stop: 04/15/21 16:25 Last Admin: 04/15/21 18:54 Dose: Not Given Documented by: - Exam Quality Assessment: Supplemental Oxygen General: Alert, Oriented, Cooperative, No Acute Distress HEENT: Pupils Equal, Pupils Reactive, EOMI Lungs: Crackles (bilateral lower lobes) Cardiovascular: Regular Rate, Regular Rhythm, No Murmurs, Other (lower extremity edema distal to knees +3 bilateral) GI/Abdominal Exam: Normal Bowel Sounds, Soft, Non-Tender, Other (morbid obesity) Extremities: Non-Tender, Pedal Edema Peripheral Pulses: 2+: Radial (L), Radial (R) Skin: Warm, Dry, Intact Neurological: No New Focal Deficit Psy/Mental Status: Alert, Normal Affect - Patient Data Lab Results Last 24 hrs: Laboratory Results - last 24 hr 04/16/21 Range/Units 14:00 Sodium 146 H (136-145) mmol/L Potassium 4.3 (3.5-5.1) mmol/L Chloride 102 (98-107) mmol/L Carbon Dioxide 44.9 H (21.0-32.0) mmol/L Anion Gap 3.4 L (5.0-15.0) mmol/L BUN 27 H (8-26) mg/dL Creatinine 1.17 (0.70-1.30) mg/dL Est Cr Clr Drug Dosing 66.39 mL/min Estimated GFR (MDRD) > 60 (>60) MLS/MIN BUN/Creatinine Ratio 23.1 (6-25) Glucose 142 H D (74-100) mg/dL Calcium 8.7 (8.5-10.1) mg/dL Total Bilirubin 0.7 (0.0-1.0) mg/dL AST 19 (15-37) U/L ALT 27 (12-78) U/L Alkaline Phosphatase 47 (46-116) U/L B-Natriuretic Peptide 322 H D (0-125) pg/mL Total Protein 7.6 (6.4-8.2) g/dL Albumin 3.1 L (3.4-5.0) g/dL Globulin 4.5 H (2.2-4.2) g/dL Albumin/Globulin Ratio 0.7 L (0.8-2.0) Result Diagrams: 04/15/21 11:19 04/16/21 14:00 Jonathan Results Last 24 hrs: Microbiology 04/16/21 07:17 MRSA Surveillance Culture - Final Nares, Unspecified NO MRSA ISOLATED Sepsis Event Note - Evaluation Sepsis Screening Result: No Definite Risk - Focused Exam Vital Signs: Vital Signs Temp Pulse Pulse Resp BP BP Pulse Ox 04/17/21 12:20 89 L 04/17/21 11:36 97 F 67 18 96/44 L 93 L 04/17/21 09:35 04/17/21 08:00 73 97/56 L 04/17/21 07:59 97/56 L 04/17/21 07:39 73 16 97/56 L 93 L 04/17/21 04:00 16 Pulse Ox 04/17/21 12:20 04/17/21 11:36 04/17/21 09:35 93 L 04/17/21 08:00 04/17/21 07:59 04/17/21 07:39 04/17/21 04:00 - Problem List & Annotations (1) Acute and chronic respiratory failure ([id number]) SNOMED Code(s): 62127334 Code(s): J96.20 - ACUTE AND CHR RESP FAILURE, UNSP W HYPOXIA OR HYPERCAPNIA Status: Chronic Priority: High Current Visit: Yes Qualifiers: Respiratory failure complication: hypoxia Qualified Code(s): J96.21 - Acute and chronic respiratory failure with hypoxia (2) CHF, Congestive heart failure SNOMED Code(s): 09871809 Code(s): I50.9 - HEART FAILURE, UNSPECIFIED Status: Chronic Priority: High Current Visit: Yes (3) Compensated respiratory acidosis SNOMED Code(s): 65306726 Code(s): E87.2 - ACIDOSIS Status: Resolved Current Visit: No (4) Hypoxia SNOMED Code(s): 392457061 Code(s): R09.02 - HYPOXEMIA Status: Resolved Priority: High Current Visit: Yes - Problem List Review Problem List Initiated/Reviewed/Updated: Yes - My Orders Last 24 Hours: My Active Orders 04/16/21 12:11 Up to Chair [RC] Q4HR OT Evaluation and Treatment [CONS] Routine PT Evaluation and Treatment [CONS] Routine Pulse Oximetry Continuous Monitoring [OM.PC] Routine 04/16/21 12:12 Overnight Pulse Oximetry [RC] Click to Edit RT Aerosol Therapy [RC] ASDIRECTED 04/16/21 12:15 Albuterol/Ipratropium [DuoNeb 3.0-0.5 MG/3 ML] 3 ml NEB Q8H 04/16/21 12:24 Daily Weight [Height and Weight] [RC] DAILY 04/17/21 12:42 COMPREHENSIVE METABOLIC PN,CMP [CHEM] Stat MAGNESIUM [CHEM] Stat 04/18/21 05:11 COMPREHENSIVE METABOLIC PN,CMP [CHEM] AM - Assessment Assessment:: continuous o2 monitoring, scheduled duonebs, PT and OT eval for discharge readiness and planning. continue up to chair at least 3x per day for 1hr a time. pt in poor physical conditioning and does not appear motivated for activity. significant improvements noted when in chair. perfusion appears good with sats 86-89% with CPAP and 86% on 2lpm when up in chair. plan to continue IV diuresis and increase activity, ADLs check via therapy and discharge 18 April, likely, depending on improvements.
[2021-04-17] MEDS: Warfarin 5 MG Tab PO SCH (17:13)
[2021-04-18] MEDS: Melatonin 3 MG Tab PO PRN ×2 (03:04→20:03)
[2021-04-18] MEDS: Albuterol/Ipratropium 3.0-0.5 MG/3 ML Neb Soln NEB SCH ×3 (04:50→19:24)
[2021-04-18] MEDS: Arformoterol 15 MCG/2 ML Neb Soln NEB SCH ×2 (07:32→20:04)
[2021-04-18] MEDS: Metoprolol Succinate 25 MG Tab.ER PO SCH (07:33)
[2021-04-18] MEDS: Lisinopril 5 MG Tab PO SCH (07:33)
[2021-04-18] MEDS: Nystatin Topical Powder 15 GM Bottle TOP SCH ×2 (07:34→20:03)
[2021-04-18] MEDS: Furosemide 40 MG Tab PO SCH ×2 (07:34→16:33)
--- NOTE | 2021-04-18 11:07 | PCM.PN ---
- General Info Date of Service: 04/18/21 Admission Dx/Problem (Free Text): pt admit 15 april for CHF exacerbation, hypoxic respiratory failure, PAH hx. lasix BID, no recent Echocardiogram. overnight O2 sats dropping to 80%s with home-PAP. pt activity from yesterday getting up in chair for meals and walking within room with therapy. some activity with PT/OT yesterday afternoon and today. pt states he is feeling improved, awake, alert and oriented x4 making good convo. SaO2 92% on 2-3lpm when sitting up in chair, weaning O2 for sats approx 90%. discussed discharge potential with patient, typing office worker, therapy, pt states he has little confidence today for ability to get home due to deconditioning but states he is motivated to return home tomorrow with therapy today and ambulation with nursing. therapy and SW ok with this plan as well. discussion with pt on placement in SNF vs assisted living and he declined at this time. he states he may be able to find a ride home tomorrow from family and friends or through [place] [facility]. Functional Status: Reports: Pain Controlled, Tolerating Diet, Ambulating - Review of Systems General: Reports: Weakness HEENT: Reports: No Symptoms Cardiovascular: Reports: Dyspnea on Exertion Gastrointestinal: Reports: No Symptoms Skin: Reports: No Symptoms Neurological: Reports: No Symptoms Psychiatric: Reports: No Symptoms - Patient Data Vitals - Most Recent: Last Vital Signs Temp 97.6 F 04/18/21 07:54 Pulse 60 04/18/21 07:54 Resp 20 04/18/21 07:54 BP 104/61 04/18/21 07:54 Pulse Ox 92 L 04/18/21 07:54 Weight - Most Recent: 428 lb 9.258 oz I&O - Last 24 Hours: Intake & Output 04/17/21 04/18/21 04/18/21 22:59 06:59 14:59 Intake Total 1850 200 Output Total 2250 850 Balance -400 -650 Lab Results Last 24 Hours: Laboratory Results - last 24 hr 04/17/21 04/18/21 Range/Units 13:30 07:15 Sodium 142 146 H (136-145) mmol/L Potassium 4.9 4.1 (3.5-5.1) mmol/L Chloride 102 102 (98-107) mmol/L Carbon Dioxide 39.9 H 42.8 H (21.0-32.0) mmol/L Anion Gap 5.0 5.3 (5.0-15.0) mmol/L BUN 29 H 23 D (8-26) mg/dL Creatinine 0.82 D 0.83 (0.70-1.30) mg/dL Est Cr Clr Drug Dosing 94.73 93.59 mL/min Estimated GFR (MDRD) > 60 > 60 (>60) MLS/MIN BUN/Creatinine Ratio 35.4 H 27.7 H (6-25) Glucose 113 H 100 (74-100) mg/dL Calcium 8.7 8.2 L (8.5-10.1) mg/dL Magnesium 2.0 (1.8-2.4) mg/dL Total Bilirubin 0.9 1.0 (0.0-1.0) mg/dL AST 33 18 (15-37) U/L ALT 24 23 (12-78) U/L Alkaline Phosphatase 41 L 38 L (46-116) U/L B-Natriuretic Peptide 122 D (0-125) pg/mL Total Protein 7.1 6.6 (6.4-8.2) g/dL Albumin 2.6 L 2.6 L (3.4-5.0) g/dL Globulin 4.5 H 4.0 (2.2-4.2) g/dL Albumin/Globulin Ratio 0.6 L 0.7 L (0.8-2.0) Jonathan Results Last 24 Hours: Microbiology 04/16/21 07:17 MRSA Surveillance Culture - Final Nares, Unspecified NO MRSA ISOLATED Med Orders - Current: Current Medications Acetaminophen (Acetaminophen 500 Mg Tab) 500 mg PO Q6H PRN PRN Reason: Pain Last Admin: 04/15/21 18:57 Dose: 500 mg Documented by: Albuterol/Ipratropium (Albuterol/Ipratropium 3.0-0.5 Mg/3 Ml Neb Soln) 3 ml NEB Q2H PRN PRN Reason: Dyspnea Last Admin: 04/16/21 16:04 Dose: 3 ml Documented by: Albuterol/Ipratropium (Albuterol/Ipratropium 3.0-0.5 Mg/3 Ml Neb Soln) 3 ml NEB Q8H [facility]O Last Admin: 04/18/21 04:50 Dose: Not Given Documented by: Arformoterol Tartrate (Arformoterol 15 Mcg/2 Ml Neb Soln) 15 mcg NEB BID [facility] Last Admin: 04/18/21 07:32 Dose: 15 mcg Documented by: Furosemide (Furosemide 40 Mg Tab) 40 mg PO BIDDIURETIC [facility] Last Admin: 04/18/21 07:34 Dose: 40 mg Documented by: Lisinopril (Lisinopril 5 Mg Tab) 5 mg PO DAILY [facility] Last Admin: 04/18/21 07:33 Dose: 5 mg Documented by: Melatonin (Melatonin 3 Mg Tab) 3 mg PO BEDTIME PRN PRN Reason: Sleep Last Admin: 04/18/21 03:04 Dose: 3 mg Documented by: Metoprolol Succinate (Metoprolol Succinate 25 Mg Tab.Er) 25 mg PO DAILY [facility] Last Admin: 04/18/21 07:33 Dose: 25 mg Documented by: Nystatin (Nystatin Topical Powder 15 Gm Bottle) 0 gm TOP BID [facility] Last Admin: 04/18/21 07:34 Dose: 1 applic Documented by: Sodium Chloride (Sodium Chloride 0.9% 10 Ml Syringe) 10 ml FLUSH ASDIRECTED PRN PRN Reason: Keep Vein Open Last Admin: 04/17/21 07:58 Dose: 10 ml Documented by: Warfarin Sodium (Warfarin 5 Mg Tab) 10 mg PO DAILY@1800 [facility] Last Admin: 04/17/21 17:13 Dose: 10 mg Documented by: Discontinued Medications Acetaminophen (Acetaminophen 325 Mg Tab) 650 mg PO NOW ONE Stop: 04/15/21 12:16 Last Admin: 04/15/21 12:17 Dose: 650 mg Documented by: Acetaminophen (Acetaminophen 325 Mg Tab) Confirm Administered Dose 650 mg .ROUTE .STK-MED ONE Stop: 04/15/21 12:28 Last Admin: 04/15/21 12:28 Dose: Not Given Documented by: Albuterol (Albuterol 0.083% 2.5 Mg/3 Ml Neb Soln) 2.5 mg NEB ONETIME ONE Stop: 04/15/21 11:12 Last Admin: 04/15/21 11:12 Dose: 2.5 mg Documented by: Furosemide (Furosemide 40 Mg/4 Ml Vial) 20 mg IVPUSH NOW ONE Stop: 04/15/21 11:38 Last Admin: 04/15/21 11:47 Dose: 20 mg Documented by: Furosemide (Furosemide 40 Mg/4 Ml Vial) Confirm Administered Dose 40 mg .ROUTE .STK-MED ONE Stop: 04/15/21 11:58 Last Admin: 04/15/21 12:17 Dose: Not Given Documented by: Furosemide (Furosemide 40 Mg/4 Ml Vial) 20 mg IVPUSH NOW ONE Stop: 04/15/21 12:18 Last Admin: 04/15/21 12:19 Dose: 20 mg Documented by: Morphine Sulfate (Morphine 4 Mg/Ml Vial) 4 mg IVPUSH ONETIME ONE Stop: 04/15/21 16:25 Last Admin: 04/15/21 18:54 Dose: Not Given Documented by: - Exam Quality Assessment: Supplemental Oxygen General: Alert, Oriented, Cooperative, No Acute Distress HEENT: Pupils Equal, Pupils Reactive, EOMI, Mucous Membr. Moist/[place] Neck: Supple Lungs: Clear to Auscultation Cardiovascular: Regular Rate, Regular Rhythm, Other (+2 bilateral LE edema) Peripheral Pulses: 2+: Radial (L), Radial (R) Skin: Warm, Dry, Intact Neurological: No New Focal Deficit Psy/Mental Status: Alert, Normal Affect, Normal Mood - Patient Data Lab Results Last 24 hrs: Laboratory Results - last 24 hr 04/17/21 04/18/21 Range/Units 13:30 07:15 Sodium 142 146 H (136-145) mmol/L Potassium 4.9 4.1 (3.5-5.1) mmol/L Chloride 102 102 (98-107) mmol/L Carbon Dioxide 39.9 H 42.8 H (21.0-32.0) mmol/L Anion Gap 5.0 5.3 (5.0-15.0) mmol/L BUN 29 H 23 D (8-26) mg/dL Creatinine 0.82 D 0.83 (0.70-1.30) mg/dL Est Cr Clr Drug Dosing 94.73 93.59 mL/min Estimated GFR (MDRD) > 60 > 60 (>60) MLS/MIN BUN/Creatinine Ratio 35.4 H 27.7 H (6-25) Glucose 113 H 100 (74-100) mg/dL Calcium 8.7 8.2 L (8.5-10.1) mg/dL Magnesium 2.0 (1.8-2.4) mg/dL Total Bilirubin 0.9 1.0 (0.0-1.0) mg/dL AST 33 18 (15-37) U/L ALT 24 23 (12-78) U/L Alkaline Phosphatase 41 L 38 L (46-116) U/L B-Natriuretic Peptide 122 D (0-125) pg/mL Total Protein 7.1 6.6 (6.4-8.2) g/dL Albumin 2.6 L 2.6 L (3.4-5.0) g/dL Globulin 4.5 H 4.0 (2.2-4.2) g/dL Albumin/Globulin Ratio 0.6 L 0.7 L (0.8-2.0) Result Diagrams: 04/15/21 11:19 04/18/21 07:15 Jonathan Results Last 24 hrs: Microbiology 04/16/21 07:17 MRSA Surveillance Culture - Final Nares, Unspecified NO MRSA ISOLATED Sepsis Event Note - Evaluation Sepsis Screening Result: No Definite Risk - Focused Exam Vital Signs: Vital Signs Temp Pulse Pulse Resp BP BP Pulse Ox 04/18/21 07:54 97.6 F 60 20 104/61 92 L 04/18/21 07:33 60 104/61 04/18/21 04:00 98.0 F 63 22 H 99/64 92 L 04/18/21 02:20 96 04/18/21 00:55 91 L 04/18/21 00:00 98.1 F 70 22 H 107/54 L 89 L - Problem List & Annotations (1) Acute and chronic respiratory failure ([id number]) SNOMED Code(s): 65692491 Code(s): J96.20 - ACUTE AND CHR RESP FAILURE, UNSP W HYPOXIA OR HYPERCAPNIA Status: Resolved Priority: High Current Visit: Yes Qualifiers: Respiratory failure complication: hypoxia Qualified Code(s): J96.21 - Acute and chronic respiratory failure with hypoxia (2) CHF, Congestive heart failure SNOMED Code(s): 93186766 Code(s): I50.9 - HEART FAILURE, UNSPECIFIED Status: Resolved Priority: High Current Visit: Yes (3) Hypoxia SNOMED Code(s): 343698886 Code(s): R09.02 - HYPOXEMIA Status: Resolved Priority: High Current Visit: Yes (4) Physical deconditioning SNOMED Code(s): 67808855447198 Code(s): R53.81 - OTHER MALAISE Status: Acute Current Visit: Yes - Problem List Review Problem List Initiated/Reviewed/Updated: Yes - Assessment Assessment:: stop continuous o2 monitoring, continue scheduled duonebs, PT and OT today, continued activity with nursing for deconditioning. continue up to chair at least 3x per day for 1hr a time. pt currently motivated for activity and discharge home tomorrow. significant improvements noted when in chair. perfusion appears good with sats 89-93% with CPAP and 88-89% on 2-3lpm when up in chair. plan to switch to PO diuresis and increase activity, discharge 19 April, likely.
[2021-04-18] MEDS: Warfarin 5 MG Tab PO SCH (17:33)
[2021-04-18] MEDS: Acetaminophen 500 MG Tab PO PRN (20:03)
[2021-04-19] MEDS: Acetaminophen 500 MG Tab PO PRN (01:47)
[2021-04-19] MEDS: Albuterol/Ipratropium 3.0-0.5 MG/3 ML Neb Soln NEB SCH ×2 (04:56→11:15)
[2021-04-19] MEDS: Arformoterol 15 MCG/2 ML Neb Soln NEB SCH (08:14)
[2021-04-19] MEDS: Metoprolol Succinate 25 MG Tab.ER PO SCH (08:15)
[2021-04-19] MEDS: Furosemide 40 MG Tab PO SCH (08:15)
[2021-04-19] MEDS: Nystatin Topical Powder 15 GM Bottle TOP SCH (08:15)
[2021-04-19] MEDS: Lisinopril 5 MG Tab PO SCH (08:15)
--- NOTE | 2021-04-19 11:23 | PCM.DCSUM1 ---
Discharge Summary - Hospital Course Free Text/Narrative:: pt admit 15 april for CHF exacerbation, hypoxic respiratory failure, PAH hx. lasix BID, no recent Echocardiogram. overnight O2 sats dropping to 80%s with home-PAP. pt activity has increased from pt not willing to get out of bed to getting up in chair for meals and walking within room with therapy and yesterday and today walking in halls for greater than 60 ft. pt states he continues feeling improved, awake, alert and oriented x4, moving independently in room. SaO2 92% on 2-3lpm when sitting up in chair, weaning O2 for sats approx 90%. pt is motivated to return home today with therapy after therapy recommendation of pt continued activity independently in room and halls. pt does have ride picking him up after lunch. lower extremity edema also improved with future appointments scheduled including eye appt wednesday and echocardiogram wednesday. - Discharge Data Discharge Date: 04/19/21 Discharge Disposition: Home, Self-Care 01 Condition: Good - Referral to Home Health Primary Care Physician: PCP None - Discharge Diagnosis/Problem(s) (1) Acute and chronic respiratory failure ([id number]) SNOMED Code(s): 82937266 ICD Code: J96.20 - ACUTE AND CHR RESP FAILURE, UNSP W HYPOXIA OR HYPERCAPNIA Status: Resolved Priority: High Current Visit: Yes Qualifiers: Respiratory failure complication: hypoxia Qualified Code(s): J96.21 - Acute and chronic respiratory failure with hypoxia (2) CHF, Congestive heart failure SNOMED Code(s): 94417173 ICD Code: I50.9 - HEART FAILURE, UNSPECIFIED Status: Chronic Priority: High Current Visit: Yes (3) Hypoxia SNOMED Code(s): 014838317 ICD Code: R09.02 - HYPOXEMIA Status: Resolved Priority: High Current Visit: Yes (4) Physical deconditioning SNOMED Code(s): 21323205588350 ICD Code: R53.81 - OTHER MALAISE Status: Resolved Current Visit: Yes - Patient Summary/Data Consults: Consultations 04/16/21 12:11 OT Evaluation and Treatment [CONS] Routine Please Evaluate and Treat. OT Reason for Consult: ADL's This query below is only for informational purposes and is not editable. Admission Diagnosis/Problem: Respiratory failure PT Evaluation and Treatment [CONS] Routine Please Evaluate and Treat. PT Reason for Consult: Ambulation Special Instructions: discharge readiness This query below is only for informational purposes and is not editable. Admission Diagnosis/Problem: Respiratory failure - Discharge Plan *PRESCRIPTION DRUG MONITORING PROGRAM REVIEWED*: Not Applicable *COPY OF PRESCRIPTION DRUG MONITORING REPORT IN PATIENT CLEO: Not Applicable Home Medications: Home Meds Multivits w-Min/Ferrous Gluc [Cerovite Liquid] 9 mg PO DAILY 10/04/19 [History] Warfarin Sodium [Jantoven] 10 mg PO DAILY 05/08/20 [History] Acetaminophen [Tylenol Extra Strength] 500 mg PO Q6H PRN tablet 06/03/20 [Rx] Albuterol/Ipratropium [DuoNeb 3.0-0.5 MG/3 ML] 3 ml NEB Q2H PRN neb 06/03/20 [Rx] Melatonin 3 mg PO BEDTIME PRN tablet 06/03/20 [Rx] Nystatin [Nystop] 1 gm TOP BID bottle 06/03/20 [Rx] Arformoterol [Brovana] 15 mcg NEB BID 04/15/21 [History] Furosemide 40 mg PO BID 04/15/21 [History] Glucosamine HCl [Glucosamine] 1,500 mg PO DAILY 04/15/21 [History] Metoprolol Succinate 25 mg PO DAILY 04/15/21 [History] lisinopriL [Lisinopril] 5 mg PO DAILY 04/15/21 [History] Oxygen Therapy Mode: Nasal Cannula Oxygen Flow Rate (L/min): 2 Forms: ED Department Discharge Referrals: PCP,None [Primary Care Provider] - - Discharge Summary/Plan Comment DC Time >30 min.: Yes Discharge Summary/Plan Comment: pt will discharge home and follow up as scheduled. no medication changes. increase activity with daily walks, then twice and three times daily walks. elevate legs when able. - General Info Date of Service: 04/19/21 Admission Dx/Problem (Free Text: pt admit 15 april for CHF exacerbation, hypoxic respiratory failure, PAH hx. lasix BID, no recent Echocardiogram. overnight O2 sats dropping to 80%s with home-PAP. pt activity has increased from pt not willing to get out of bed to getting up in chair for meals and walking within room with therapy and yesterday and today walking in halls for greater than 60 ft. pt states he continues feeling improved, awake, alert and oriented x4, moving independently in room. SaO2 92% on 2-3lpm when sitting up in chair, weaning O2 for sats approx 90%. pt is motivated to return home today with therapy after therapy recommendation of pt continued activity independently in room and halls. pt does have ride picking him up after lunch. lower extremity edema also improved with future appointments scheduled including eye appt wednesday and echocardiogram wednesday. Functional Status: Reports: Pain Controlled - Review of Systems General: Reports: No Symptoms HEENT: Reports: No Symptoms Pulmonary: Reports: No Symptoms Cardiovascular: Reports: Dyspnea on Exertion Skin: Reports: No Symptoms Neurological: Reports: No Symptoms - Patient Data Vitals - Most Recent: Last Vital Signs Temp 98.0 F 04/19/21 08:00 Pulse 71 04/19/21 08:15 Resp 22 H 04/19/21 08:00 BP 115/68 04/19/21 08:15 Pulse Ox 91 L 04/19/21 08:00 Weight - Most Recent: 428 lb Med Orders - Current: Current Medications Acetaminophen (Acetaminophen 500 Mg Tab) 500 mg PO Q6H PRN PRN Reason: Pain Last Admin: 04/19/21 01:47 Dose: 500 mg Documented by: Albuterol/Ipratropium (Albuterol/Ipratropium 3.0-0.5 Mg/3 Ml Neb Soln) 3 ml NEB Q2H PRN PRN Reason: Dyspnea Last Admin: 04/16/21 16:04 Dose: 3 ml Documented by: Albuterol/Ipratropium (Albuterol/Ipratropium 3.0-0.5 Mg/3 Ml Neb Soln) 3 ml NEB Q8H PEPITO Last Admin: 04/19/21 11:15 Dose: 3 ml Documented by: Arformoterol Tartrate (Arformoterol 15 Mcg/2 Ml Neb Soln) 15 mcg NEB BID PEPITO Last Admin: 04/19/21 08:14 Dose: Not Given Documented by: Furosemide (Furosemide 40 Mg Tab) 40 mg PO BIDDIURETIC PEPITO Last Admin: 04/19/21 08:15 Dose: 40 mg Documented by: Lisinopril (Lisinopril 5 Mg Tab) 5 mg PO DAILY [facility] Last Admin: 04/19/21 08:15 Dose: 5 mg Documented by: Melatonin (Melatonin 3 Mg Tab) 3 mg PO BEDTIME PRN PRN Reason: Sleep Last Admin: 04/18/21 20:03 Dose: 3 mg Documented by: Metoprolol Succinate (Metoprolol Succinate 25 Mg Tab.Er) 25 mg PO DAILY [facility] Last Admin: 04/19/21 08:15 Dose: 25 mg Documented by: Nystatin (Nystatin Topical Powder 15 Gm Bottle) 0 gm TOP BID [facility] Last Admin: 04/19/21 08:15 Dose: 1 applic Documented by: Warfarin Sodium (Warfarin 5 Mg Tab) 10 mg PO DAILY@1800 [facility] Last Admin: 04/18/21 17:33 Dose: 10 mg Documented by: Discontinued Medications Acetaminophen (Acetaminophen 325 Mg Tab) 650 mg PO NOW ONE Stop: 04/15/21 12:16 Last Admin: 04/15/21 12:17 Dose: 650 mg Documented by: Acetaminophen (Acetaminophen 325 Mg Tab) Confirm Administered Dose 650 mg .ROUTE .STK-MED ONE Stop: 04/15/21 12:28 Last Admin: 04/15/21 12:28 Dose: Not Given Documented by: Albuterol (Albuterol 0.083% 2.5 Mg/3 Ml Neb Soln) 2.5 mg NEB ONETIME ONE Stop: 04/15/21 11:12 Last Admin: 04/15/21 11:12 Dose: 2.5 mg Documented by: Furosemide (Furosemide 40 Mg/4 Ml Vial) 20 mg IVPUSH NOW ONE Stop: 04/15/21 11:38 Last Admin: 04/15/21 11:47 Dose: 20 mg Documented by: Furosemide (Furosemide 40 Mg/4 Ml Vial) Confirm Administered Dose 40 mg .ROUTE .STK-MED ONE Stop: 04/15/21 11:58 Last Admin: 04/15/21 12:17 Dose: Not Given Documented by: Furosemide (Furosemide 40 Mg/4 Ml Vial) 20 mg IVPUSH NOW ONE Stop: 04/15/21 12:18 Last Admin: 04/15/21 12:19 Dose: 20 mg Documented by: Morphine Sulfate (Morphine 4 Mg/Ml Vial) 4 mg IVPUSH ONETIME ONE Stop: 04/15/21 16:25 Last Admin: 04/15/21 18:54 Dose: Not Given Documented by: Sodium Chloride (Sodium Chloride 0.9% 10 Ml Syringe) 10 ml FLUSH ASDIRECTED PRN PRN Reason: Keep Vein Open Last Admin: 04/17/21 07:58 Dose: 10 ml Documented by: - Exam Quality Assessment: Reports: Supplemental Oxygen General: Reports: Alert, Oriented, Cooperative HEENT: Reports: Pupils Equal, Pupils Reactive, EOMI Lungs: Reports: Clear to Auscultation, Normal Respiratory Effort Cardiovascular: Reports: Regular Rate, Regular Rhythm, No Murmurs Extremities: Normal Range of Motion, Non-Tender, Normal Capillary Refill, Pedal Edema Skin: Reports: Warm, Dry, Intact Wound/Incisions: Reports: Healing Well Neurological: Reports: No New Focal Deficit Psy/Mental Status: Reports: Alert, Normal Affect, Normal Mood
== END 2021-04-19 13:00 | disposition home or self-care (01) | DRG 291 ==
LOC: LB.ED 10:59 → LB.MS 16:20
PROVIDERS: ADMIT Surgery; ATTEND Surgery
DX: I11.0 Hypertensive heart disease with heart failure (principal); J96.21 Acute and chronic respiratory failure with hypoxia; E87.2 Acidosis; Z68.43 Body mass index [BMI] 50.0-59.9, adult; I50.9 Heart failure, unspecified; H54.7 Unspecified visual loss; I27.20 Pulmonary hypertension, unspecified; E66.9 Obesity, unspecified; Z20.822 Contact with and (suspected) exposure to COVID-19; R53.81 Other malaise; Z79.01 Long term (current) use of anticoagulants; Z79.899 Other long term (current) drug therapy; Z99.81 Dependence on supplemental oxygen
CPT/HCPCS: 36415; 71045; 80048; 80053; 83735; 83880; 84484; 85027; 85610; 93005; 96374; 96376; 97162-GP; 97165-GO; 97530-GP; 97535-GO; 99285-25; A0425; A0429; A9270-GY; J1940; J7605; J7620-GY; U0002

== ENCOUNTER 2022-01-31 13:39 | Inpatient (IN) | payer MEDICARE, BC ==
[2022-01-31] MEDS ORDERED: Furosemide 40 MG/4 ML VIAL IVPUSH ONE (14:47)
[2022-01-31] MEDS ORDERED: Albuterol/Ipratropium 3.0-0.5 MG/3 ML Neb Soln NEB ONE (14:53)
[2022-01-31] MEDS ORDERED: Furosemide 40 MG/4 ML VIAL ONE (15:04)
[2022-01-31] MEDS ORDERED: Acetaminophen 500 MG Tab PO PRN (15:59)
[2022-01-31] MEDS ORDERED: Melatonin 3 MG Tab PO PRN (15:59)
[2022-01-31] MEDS ORDERED: Albuterol/Ipratropium 3.0-0.5 MG/3 ML Neb Soln NEB PRN (15:59)
[2022-01-31] MEDS ORDERED: Promethazine 12.5 MG in Sodium Chloride 0.9% 50 ML IV PRN (16:02)
[2022-01-31] MEDS ORDERED: Docusate Sodium 100 MG Cap PO PRN (16:02)
[2022-01-31] MEDS ORDERED: Furosemide 40 MG Tab PO SCH (20:00)
[2022-01-31] MEDS ORDERED: Arformoterol 15 MCG/2 ML Neb Soln NEB SCH (20:00)
[2022-01-31] MEDS: Furosemide 100 MG in Sodium Chloride 0.9% 90 ML IV SCH (20:00)
[2022-01-31] MEDS: Nystatin Topical Powder 15 GM Bottle TOP SCH (20:17)
[2022-02-01] MEDS: Albuterol 0.083% 2.5 MG/3 ML Neb Soln NEB SCH ×3 (00:27→11:52)
[2022-02-01] MEDS ORDERED: Lisinopril 5 MG Tab PO SCH (08:00)
[2022-02-01] MEDS ORDERED: Metoprolol Succinate 25 MG Tab.ER PO SCH (08:00)
[2022-02-01] MEDS ORDERED: GLUCOSAMINE HCL 1500 MG PO SCH (08:00)
[2022-02-01] MEDS ORDERED: Warfarin 5 MG Tab PO SCH ×2 (08:00→18:00)
[2022-02-01] MEDS: Nystatin Topical Powder 15 GM Bottle TOP SCH (08:01)
[2022-02-01] MEDS ORDERED: Albuterol/Ipratropium 3.0-0.5 MG/3 ML Neb Soln NEB PRN (11:45)
[2022-02-01] MEDS ORDERED: methylPREDNISolone Sodium Succinate 125 MG/2 ML SDV IV ONE (11:46)
[2022-02-01] MEDS: Furosemide 100 MG in Sodium Chloride 0.9% 90 ML IV SCH (11:51)
[2022-02-01] MEDS ORDERED: Albuterol 0.083% 2.5 MG/3 ML Neb Soln NEB PRN (12:17)
[2022-02-01] MEDS ORDERED: Albuterol/Ipratropium 3.0-0.5 MG/3 ML Neb Soln NEB SCH (16:00)
[2022-02-01] MEDS ORDERED: Ketamine 200 MG/20 ML MDV ONE ×2 (18:54→19:11)
[2022-02-01] MEDS ORDERED: methylPREDNISolone Sodium Succinate 40 MG/1 ML SDV IVPUSH SCH (20:00)
[2022-02-01] MEDS ORDERED: Pantoprazole 40 MG Tab.CR PO SCH (20:00)
== END 2022-02-01 20:00 | DRG 208 ==
LOC: LB.ED 13:39 → LB.MS 15:58 → UNDOADMIN 16:00 → LB.MS 16:00 → UNDODISIN 02-01 20:00
PROVIDERS: ADMIT Physician Assistant; ATTEND Physician Assistant
PROC: 5A09357 Assistance with Respiratory Ventilation, Less than 24 Consecutive Hours, Continuous Positive Airway Pressure (ICD-10-PCS; 2022-01-31)
PROC: 0BH17EZ Insertion of Endotracheal Airway into Trachea, Via Natural or Artificial Opening (ICD-10-PCS; principal; 2022-02-01)
PROC: 5A1935Z Respiratory Ventilation, Less than 24 Consecutive Hours (ICD-10-PCS; 2022-02-01)
DX: J96.22 Acute and chronic respiratory failure with hypercapnia (principal); H54.7 Unspecified visual loss; Z68.43 Body mass index [BMI] 50.0-59.9, adult; G47.33 Obstructive sleep apnea (adult) (pediatric); C18.9 Malignant neoplasm of colon, unspecified; I27.20 Pulmonary hypertension, unspecified; E66.01 Morbid (severe) obesity due to excess calories; I11.0 Hypertensive heart disease with heart failure; I50.9 Heart failure, unspecified; Z20.822 Contact with and (suspected) exposure to COVID-19; Z79.01 Long term (current) use of anticoagulants; Z79.899 Other long term (current) drug therapy; Z99.81 Dependence on supplemental oxygen
CPT/HCPCS: 36415; 71045; 80053; 83605; 83880; 84443; 84484; 85025; 85379; 85610; J1940; 36600; 80048; 81003; 82803; 82947; 83735; 96374; 99285-25; A0425; A0429; A9270-GY; J2930; J3490; J7620; U0002